=== PATIENT | female | born 1995 | race Caucasian/White ===

== ENCOUNTER → 2018-03-31 12:48 | Outpatient (CLI) | payer OTHER, MEDICAID, SELFPAY ==
[2018-03-31 13:40] LABS: Add Manual Diff / Slide Review NO; Basophils Percent Auto 0.2 % (0-2); Eosinophils Percent Auto 1.3 % (2-4); Hematocrit 41.7 % (36-46); Hemoglobin 14.1 g/dL (12.0-16.0); Lymphocytes Percent Auto 30.5 % (25-40); Mean Corpuscular HGB Conc 33.8 % (30-36); Mean Corpuscular Hemoglobin 28.5 PG (26-34); Mean Corpuscular Volume 84.5 fL (80-100); Monocytes Percent Auto 6.1 % (3-14); Neutrophils Absolute Auto 4200 /uL (1500-7000); Neutrophils Percent Auto 61.9 % (50-75); Platelet Count 258 X10^3/uL (150-400); Red Blood Cell Count 4.94 X10^6/uL (4.0-5.2); White Blood Cell Count 6.8 X10^3/uL (4.5-11.0)
[2018-03-31 14:08] LABS: Alanine Aminotransferase 26 IU/L (9-52); Albumin 4.2 g/dL (3.5-5.0); Albumin Globulin Ratio 1.4 (1.0-2.8); Alkaline Phosphatase 89 U/L (38-126); Aspartate Aminotransferase 25 IU/L (14-36); Bilirubin Total 0.4 mg/dL (0.2-1.3); Blood Urea Nitrogen 12 mg/dL (7-17); Calcium 9.1 mg/dL (8.4-10.2); Carbon Dioxide 25 mmol/L (22-32); Chloride 104 mmol/L (98-107); Cholesterol 194 mg/dL (140-199); Estimated Glomerular Filt Rate > 60.0 mL/min (>60); Globulin 3.1 g/dL (1.7-4.1); Glucose 97 mg/dL (70-100); HDL Cholesterol 49 mg/dL (40-60); HEMOLYSIS < 15 (0-50); LDL Cholesterol Calculated 127 mg/dL (<100); Potassium 4.1 mmol/L (3.4-5.1); Sodium 138 mmol/L (137-145); Total Protein 7.3 g/dL (6.3-8.2); Triglycerides 89 mg/dL (35-150)
[2018-03-31 14:32] LABS: Free T3, Triiodothyronine Free 4.14 pg/mL (2.77-5.27); Free T4, Direct Thyroxine 0.86 ng/dL (0.78-2.19)
[2018-03-31 14:46] LABS: Thyroid Stimulating Hormone 1.32 uIU/mL (0.47-4.68)
== END ==
PROVIDERS: PCP Family Medicine; Visit Provider Family Medicine
DX: N94.6 Dysmenorrhea, unspecified (principal); Z51.81 Encounter for therapeutic drug level monitoring; Z86.39 Personal history of other endocrine, nutritional and metabolic disease
CPT/HCPCS: 36415; 80053; 80061; 84439; 84443; 84481; 85025

== ENCOUNTER → 2019-01-04 12:29 | Outpatient (CLI) | payer OTHER, MEDICAID, SELFPAY ==
[2019-01-04 13:48] LABS: Appearance Urine UA CLOUDY; Bilirubin Urine UA NEGATIVE (NEGATIVE); Color Urine UA YELLOW; Glucose Urine UA NEGATIVE (Negative); Ketones Urine UA NEGATIVE (NEGATIVE); Leukocyte Esterase Urine UA 1+ (NEGATIVE); Nitrite Urine UA POSITIVE (Negative); Occult Blood Urine UA TRACE-LYSED (Negative); Protein Urine UA TRACE (Negative); Specific Gravity Urine UA 1.015 (1.000-1.035); Urobilinogen Urine UA 0.2 E.U./dL (0.2)
[2019-01-04 14:04] LABS: Bacteria Urine Many (>30); RBC Urine 0-1/HPF (0-5/HPF); Squamous Epithelial Cell Urine 10-30 /HPF (0-5/HPF); WBC Urine 10-30/HPF (0-5/HPF); pH Urine UA 6.5 (4.5-8.0)
== END ==
PROVIDERS: PCP Family Medicine; Visit Provider Family Medicine
DX: R39.89 Other symptoms and signs involving the genitourinary system (principal)
CPT/HCPCS: 81001

== ENCOUNTER 2019-01-16 18:21 | Emergency (ER) | payer OTHER, MEDICAID, SELFPAY ==
[2019-01-16 18:33] VITALS: BP 150/101; PULSE 100; RESP 16; TEMP 37.2; O2SAT 97; BMI 44.6
--- NOTE | 2019-01-16 18:41 | DI.RAD.S_ITS ---
PROCEDURE: XR FOOT RT MIN 3V INDICATIONS: pain s/p fracture TECHNIQUE: 3 views of the foot were acquired. COMPARISON: None. FINDINGS: Bones: No displaced fractures or dislocations. No suspicious bony lesions. Soft tissues: No tibiotalar joint effusion. Achilles tendon appears intact. IMPRESSION: 1. No displaced fracture or dislocation. Dictated by: Karson Gold M.D. on 01/16/2019 at 19:53 Approved by: Karson Gold M.D. on 01/16/2019 at 19:54
[2019-01-16] MEDS: KETOROLAC 60 MG/2 ML VIAL IM (18:51)
--- NOTE | 2019-01-16 20:14 | ED.LOWEXIN ---
HPI - Extremity Injury (Lower) <JUANITA Ayala-BC - Last Filed: 01/16/19 20:33> General Chief Complaint: Extremity Injury, Lower Stated Complaint: Right foot pain can't put pressure on it Time Seen by Provider: 01/16/19 18:32 Source: patient Mode of arrival: Ambulatory Limitations: no limitations History of Present Illness HPI Narrative: The patient is a 23-year-old female nonsmoker with history of obesity who presents with a chief complaint of right foot pain x3 days. She states that the outside of her right foot hurts and radiates over. She is concerned as she has had a fracture in this foot 6 years ago. She denies any precipitating injuries. She has not taken any Tylenol or Motrin for the foot, as she does not like taking medications. Related Data Previous Rx's Medication Instructions Recorded albuterol sulfate [Ventolin HFA] 2 puff INH Q4HP PRN #1 ea 05/27/17 sulfamethoxazole 800 1 tab PO BID #14 tab 01/04/19 mg-trimethoprim 160 mg tablet omeprazole magnesium 20 mg 20 mg PO DAILY #30 capl 01/11/19 tablet,delayed release sertraline 100 mg tablet 100 mg PO DAILY #30 tab 01/11/19 Allergies Allergy/AdvReac Type Severity Reaction Status Date / Time cephalexin [From KEFLEX] AdvReac Mild nausea Verified 04/16/18 15:36 Review of Systems <ДМИТРИЙ Ayala - Last Filed: 01/16/19 20:33> Review of Systems Narrative: GENERAL: Denies chills, fatigue, malaise, fever, sweats. HEENT: Denies sinus pain, ear pain, sore throat, difficulty swallowing, dizziness. RESPIRATORY: Denies dyspnea, cough, wheezing, hemoptysis, sputum. CARDIOVASCULAR: Denies chest pain, palpitations, orthopnea, edema, GASTROINTESTINAL: Denies nausea, vomiting, abdominal pain, diarrhea, constipation, melena. : Denies dysuria, frequency, incontinence, hematuria, urinary retention. MUSCULOSKELETAL: See HPI SKIN: Denies rash, skin lesions, or other NEUROLOGIC: Denies weakness, headache, numbness, change in speech, confusion, seizures, incoordination. PSYCHIATRIC: No concerning psychosocial issues. 12 point review of systems is negative except for those stated above Patient History <REGINALD Ayala - Last Filed: 01/16/19 20:33> Medical History Anxiety (Chronic) Depression (Chronic) IBS (irritable bowel syndrome) (Chronic) Surgical History Status post delivery (11/18/16) Social History Smoking Status: Never smoker Social History Smoking Status: Never smoker Exam <REGINALD Ayala - Last Filed: 01/16/19 20:33> Narrative Exam Narrative: GENERAL: This is a well-nourished, well-developed patient, in no acute distress HEAD: Atraumatic. Normocephalic. No temporal or scalp tenderness. EYES: Pupils equal round and reactive. Extraocular motions intact. No scleral icterus. No injection or drainage. ENT: Nose without bleeding, purulent drainage or septal hematoma. Throat without erythema, tonsillar hypertrophy or exudate. Uvula midline. Airway patent. NECK: Trachea midline. No JVD or lymphadenopathy. Supple, nontender, no meningeal signs. CARDIOVASCULAR: Regular rate and rhythm RESPIRATORY: No cough. No increased respiratory effort. No accessory muscle use. GASTROINTESTINAL: Abdomen soft, non-tender, nondistended. No hepato-splenomegaly, or palpable masses. No guarding. EXTREMITIES: Positive pedal pulses right foot. Capillary refill less than 2 seconds all toes right foot. Generalized pain to palpation on right foot distal to 5th digit and radiating around navicular. Ambulating without distress. NEURO: AOx3. SKIN: No rash or erythema on visible skin. No erythema or ecchymosis noted on foot. Initial Vital Signs Initial Vital Signs: Vital Signs Temperature 98.9 F 01/16/19 18:33 Pulse Rate 100 H 01/16/19 18:33 Respiratory Rate 16 01/16/19 18:33 Blood Pressure 150/101 H 01/16/19 18:33 Pulse Oximetry 97 01/16/19 18:33 <Lauren Hooper DO - Last Filed: 01/17/19 00:21> Initial Vital Signs Initial Vital Signs: Vital Signs Temperature 98.9 F 01/16/19 18:33 Pulse Rate 100 H 01/16/19 18:33 Respiratory Rate 16 01/16/19 18:33 Blood Pressure 150/101 H 01/16/19 18:33 Pulse Oximetry 97 01/16/19 18:33 Course <REGINALD Ayala - Last Filed: 01/16/19 20:33> Orders Ordered: ED Orders 01/16/19 18:41 XR foot RT min 3V Stat Discontinued Medications Ketorolac Tromethamine (Toradol) 60 mg IM NOW ONE Stop: 01/16/19 18:42 Last Admin: 01/16/19 18:51 Dose: 60 mg Documented by: JOSE Vital Signs Vital signs: Vital Signs - 8 hr 01/16/19 18:33 Temperature 98.9 F Pulse Rate 100 H Respiratory Rate 16 Blood Pressure 150/101 H Pulse Oximetry 97 <Lauren Hooper DO - Last Filed: 01/17/19 00:21> Orders Ordered: ED Orders 01/16/19 18:41 XR foot RT min 3V Stat Discontinued Medications Ketorolac Tromethamine (Toradol) 60 mg IM NOW ONE Stop: 01/16/19 18:42 Last Admin: 01/16/19 18:51 Dose: 60 mg Documented by: JOSE Vital Signs Vital signs: Vital Signs - 8 hr 01/16/19 18:33 Temperature 98.9 F Pulse Rate 100 H Respiratory Rate 16 Blood Pressure 150/101 H Pulse Oximetry 97 MDM - Extremity Injury (Lower) <REGINALD Ayala - Last Filed: 01/16/19 20:33> Imaging Data Foot x-ray: Radiologist's impression: ManavSophie Decker 23 F [address] [address] XRay Report Signed Patient: Sophie Em [facility]#: [id number] : 1995Acct:[id number] Age/Sex: 23 / FDate of Service: 01/16/19 Loc: ED Accession Number: [id number] Procedure: XR foot RT min 3V Ordering Provider: Lauren Hurtado PROCEDURE: XR FOOT RT MIN 3V INDICATIONS: pain s/p fracture TECHNIQUE: 3 views of the foot were acquired. COMPARISON: None. FINDINGS: Bones: No displaced fractures or dislocations. No suspicious bony lesions. Soft tissues: No tibiotalar joint effusion. Achilles tendon appears intact. IMPRESSION: 1. No displaced fracture or dislocation. Dictated by: Karson Gold M.D. on 01/16/2019 at 19:53 Approved by: Karson Gold M.D. on 01/16/2019 at 19:54 [facility] Narrative Medical decision making narrative: The patient is a 23-year-old female who presents with a chief complaint of foot pain for 3 days. She has a history of fracture in that foot. She does not have an acute exam is able to ambulate with weight bearing. X-ray was taken to rule out any recurring or new fracture. This came back negative. The patient was given Toradol in the emergency department. I offered a postoperative shoe or wrap, which the patient declined. I encouraged a few days of rest ice compression elevation as well as [id number] pain medications as needed and able. Patient states understanding and has no questions regarding plan of care. She states understanding of return precautions of acute concerns and recommendations a follow-up with her PCP. Discussed the possibility of an occult fracture and recommended follow-up in 10 days if worsening or no improvement. Patient was stable throughout her stay in the emergency department states understanding of return precautions as well as follow-up care. Discharge Plan Departure Patient Disposition: Home Clinical Impression: Acute foot pain Qualifiers: Laterality: right Qualified Code(s): M79.671 - Pain in right foot Discharge Date/Time: 01/16/19 20:24 Instructions: How To Perform RICE (Rest, Ice, Compress, Elevate), DI for Foot Pain Activity Restrictions/Additional Instructions: Your x-ray came back with no acute fractures today. Please try [id number] medications as needed and able Please use rest ice compression elevation Please follow up with primary care provider especially if worsening or no improvement. Please come back to the emergency department for any acute concerns Prescriptions: No Action albuterol sulfate [Ventolin HFA] 90 MCG/PUFF HFA aerosol inhaler 2 puff INH Q4HP PRNQty: 1 RF: 0 sulfamethoxazole-trimethoprim [Bactrim DS] 800-160 mg tablet 1 tab PO BID Qty: 14 RF: 0 Prilosec OTC 20 mg tablet,delayed release (DR/EC) 20 mg PO DAILY Qty: 30 RF: 2 sertraline 100 mg tablet 100 mg PO DAILY Qty: 30 RF: 2 Referrals: Soraya Navarro DO [Primary Care Provider] -
== END 2019-01-16 20:24 | disposition home or self-care (01) ==
PROVIDERS: Emergency Provider Nurse Practitioner Family; PCP Family Medicine
DX: M79.671 Pain in right foot (principal)
CPT/HCPCS: 73630; 96372; 99282; 99283; J1885

== ENCOUNTER 2019-09-29 23:24 | Emergency (ER) | payer OTHER, MEDICAID, SELFPAY ==
[2019-09-29 23:31] VITALS: PULSE 108; O2SAT 99
[2019-09-29 23:33] VITALS: BP 179/117; PULSE 104; RESP 15; TEMP 36.9; O2SAT 97; BMI 51.5
--- NOTE | 2019-09-29 23:35 | ED.HA ---
HPI - Headache General Chief Complaint: Headache Stated Complaint: headache/feels like fainting Time Seen by Provider: 09/29/19 23:32 Source: patient Mode of arrival: Ambulatory Limitations: no limitations History of Present Illness HPI Narrative: A 24-year-old female. Does have a history of headaches. She states the started over the past several weeks/months. States that at home she normally takes some caffeine and a Tylenol. She states that she tried that this evening without any improvement in her symptoms. She states that her headache was a fairly sudden onset. She was sitting on her couch. Started in the back of her head and radiates to the front. No vision changes. No numbness and tingling in arms or legs or hands and feet. No fevers. Related Data Previous Rx's Medication Instructions Recorded albuterol sulfate [Ventolin HFA] 2 puff INH Q4HP PRN #1 ea 05/27/17 doxycycline hyclate 100 mg capsule 100 mg PO BID #10 cap 07/08/19 omeprazole magnesium 20 mg 20 mg PO DAILY #30 capl 09/06/19 tablet,delayed release sertraline 100 mg tablet 100 mg PO DAILY #90 tab 09/27/19 Allergies Allergy/AdvReac Type Severity Reaction Status Date / Time cephalexin [From KEFLEX] AdvReac Mild nausea Verified 06/01/19 13:45 Review of Systems Constitutional Constitutional: Denies fever(s) and Reports headache(s) Eyes Eyes: Denies change in vision ENT Ears, Nose, Mouth, and Throat: Denies dizziness, Reports headache(s) and Denies sore throat Cardiovascular Cardiovascular: Denies chest pain, Denies rapid heart rate and Denies dyspnea Respiratory Respiratory: Denies cough and Denies dyspnea Gastrointestinal Gastrointestinal: Denies abdominal pain, Denies nausea and Denies vomiting Genitourinary Genitourinary: Denies dysuria Genitourinary: Denies dysuria Integumentary/Breasts Skin/Breast: Denies rash Neurologic Neurologic: Denies abnormal speech, Denies behavioral changes, Denies confusion, Denies dizziness, Reports headache(s) and Denies memory loss Psychiatric Psychiatric: Denies behavioral changes, Denies confusion and Denies memory loss Hematologic/Lymphatic Hematologic/Lymphatic: Denies easy bleeding and Denies easy bruising Patient History Medical History Anxiety (Chronic) Depression (Chronic 2014) IBS (irritable bowel syndrome) (Chronic) Surgical History Status post delivery (11/18/16) Social History Smoking Status: Never smoker Smoking Status: Never smoker Exam Initial Vital Signs Initial Vital Signs: Vital Signs Pulse Rate 108 H 09/29/19 23:31 Pulse Oximetry 99 09/29/19 23:31 Const General: cooperative and comfortable Limitations: mental status not altered HENMT Head: normal to inspection and normocephalic Nose: external nose normal Face and sinus: normal facial exam Mouth: oral mucosae normal Eyes Pupils: PERRL EOM: EOM intact bilaterally Resp Effort & Inspection: normal respiratory effort Auscultation: clear to auscultation bilaterally Cardio Rate: tachycardic Rhythm: regular rhythm Skin Lesions: no lesions Rashes: no rashes Neuro General: patient alert, patient awake and patient oriented x3 Cranial Nerves: CN's II-XI intact bilaterally Cognition: normal cognition Speech: speech normal Gait: normal gait Motor: muscle tone normal throughout Sensory Exam: no sensory deficits noted Extrem General: normal to inspection and capillary refill normal Psych Appearance: grossly normal and well kempt Scores GCS Duong coma scale eye opening: Spontaneous Duong coma scale verbal response: Orientated Duong coma scale motor response: Obey commands [place] coma scale total score: 15 Course Orders Ordered: ED Orders 09/29/19 23:42 CT head/brain wo con Stat 09/29/19 23:45 Basic Metabolic Panel Stat Complete Blood Count AUTO DIFF Stat Test Serum,Qual Stat Discontinued Medications Diphenhydramine HCl (Benadryl) 25 mg IV NOW ONE Stop: 09/29/19 23:41 Last Admin: 09/29/19 23:58 Dose: 25 mg Documented by: MMCFARL Sodium Chloride (Normal Saline 0.9%) 1,000 mls @ 1,000 mls/hr IV BOLUS ONE Stop: 09/30/19 00:39 Last Admin: 09/29/19 23:59 Dose: 1,000 mls/hr Documented by: MMCFARL Metoclopramide HCl (Reglan) 10 mg IV NOW ONE Stop: 09/29/19 23:41 Last Admin: 09/29/19 23:59 Dose: 10 mg Documented by: MMCFARL Vital Signs Vital signs: Vital Signs - 8 hr 09/29/19 23:31 09/29/19 23:33 09/29/19 23:49 Temperature 98.5 F Pulse Rate 108 H 104 H 107 H Respiratory Rate 15 Blood Pressure 179/117 H 158/87 H Pulse Oximetry 99 97 99 09/30/19 00:03 09/30/19 00:40 Temperature Pulse Rate 99 H 100 H Respiratory Rate Blood Pressure 136/86 Pulse Oximetry 100 97 MDM - Headache Lab Data Attestation: I reviewed the patient's lab results. Result diagrams: 09/29/19 23:45 09/29/19 23:45 Labs: Lab Results 09/29/19 09/29/19 09/29/19 Range/Units 23:45 23:45 23:45 WBC 10.4 (4.5-11.0) X10^3/uL RBC 4.77 (4.0-5.2) X10^6/uL Hgb 13.4 (12.0-16.0) g/dL Hct 39.5 (36-46) % MCV 82.7 (80-100) fL MCH 28.1 (26-34) PG MCHC 34.0 (30-36) % RDW 13.2 (11.6-14.8) % Plt Count 307 (150-400) X10^3/uL Neut % (Auto) 63.5 (50-75) % Lymph % (Auto) 29.4 (25-40) % Sharkey % (Auto) 5.9 (3-14) % Eos % (Auto) 0.7 L (2-4) % Baso % (Auto) 0.5 (0-2) % Neut # (Auto) 6600 (1271-8307) /uL Lymph # (Auto) 3100 (9792-6758) /uL Sharkey # (Auto) 600 (0-900) /uL Eos # (Auto) 100 (0-450) /uL Baso # (Auto) 100 (0-100) /uL Sodium 137 (137-145) mmol/L Potassium 3.7 (3.4-5.1) mmol/L Chloride 101 (98-107) mmol/L Carbon Dioxide 27 (22-32) mmol/L BUN 10 (7-17) mg/dL Creatinine 0.75 (0.52-1.04) mg/dL Estimated GFR > 60.0 (>60) mL/min BUN/Creatinine Ratio 13.3 (6-22) Glucose 113 H (70-100) mg/dL Calcium 9.8 (8.4-10.2) mg/dL Serum , Qual Negative (Negative) MDM Narrative Medical decision making narrative: Patient with a fairly sudden onset of headache. Afebrile. Has a normal neurologic exam. Head CT negative within 6 hours of onset of symptoms. Patient reports headache almost completely resolved after medications. I feel given her presentation and timing of head CT and other lab work that we could hold on a lumbar puncture. Low suspicion for meningitis. Low suspicion for subarachnoid hemorrhage. Patient was given return precautions and follow-up instructions. She expressed understanding and agreement with plan. Discharge Plan Departure Patient Disposition: Home Clinical Impression: Headache Qualifiers: Headache type: unspecified Headache chronicity pattern: unspecified pattern Intractability: not intractable Qualified Code(s): R51 - Headache Discharge Date/Time: 09/30/19 01:00 Instructions: DI for Headache Activity Restrictions/Additional Instructions: Continue all of your medications as directed. Contact your primary provider for follow-up. Return to the emergency department for any new or worsening symptoms Prescriptions: No Action albuterol sulfate [Ventolin HFA] 90 MCG/PUFF HFA aerosol inhaler 2 puff INH Q4HP PRNQty: 1 RF: 0 doxycycline hyclate 100 mg capsule 100 mg PO BID Qty: 10 RF: 0 Prilosec OTC 20 mg tablet,delayed release (DR/EC) 20 mg PO DAILY Qty: 30 RF: 2 sertraline 100 mg tablet 100 mg PO DAILY Qty: 90 RF: 0 Referrals: Carl Alfaro, [Primary Care Provider] -
--- NOTE | 2019-09-29 23:42 | DI.CT.S_ITS ---
PROCEDURE: CT HEAD/BRAIN WO CON INDICATIONS: Left sided headache TECHNIQUE: Noncontrast 4.5 mm thick angled axial sections acquired from the foramen magnum to the vertex, with coronal and sagittal reformats. For radiation dose reduction, the following was used: automated exposure control, adjustment of mA and/or kV according to patient size. COMPARISON: None. FINDINGS: Image quality: Excellent. CSF spaces: Basal cisterns are patent. No extra-axial fluid collections. Ventricles are normal in size and shape. Brain: No midline shift. No intracranial masses or hemorrhage. Easley-white matter interface is normal. Skull and face: Calvarium and visualized facial bones are intact, without suspicious lesions. Sinuses: Visualized sinuses and mastoids are clear. IMPRESSION: No acute intracranial abnormality demonstrated. This report is concordant with the overnight preliminary interpretation. Dictated by: Rogelio Valle M.D. on 09/30/2019 at 7:55 Approved by: Rogelio Valle M.D. on 09/30/2019 at 7:56
[2019-09-29 23:49] VITALS: BP 158/87; PULSE 107; O2SAT 99
[2019-09-29] MEDS: diphenhydrAMINE 50 MG/ML VIAL 25 MG IV (23:58)
[2019-09-29] MEDS: SODIUM CHLORIDE 0.9% 1,000 ML 1000 ML IV (23:59)
[2019-09-29] MEDS: METOCLOPRAMIDE 10 MG/2 ML INJ IV (23:59)
[2019-09-30 00:03] VITALS: PULSE 99; O2SAT 100
[2019-09-30 00:10] LABS: BUN Creatinine Ratio 13.3 (6-22); Blood Urea Nitrogen 10 mg/dL (7-17); Calcium 9.8 mg/dL (8.4-10.2); Carbon Dioxide 27 mmol/L (22-32); Chloride 101 mmol/L (98-107); Estimated Glomerular Filt Rate > 60.0 mL/min (>60); Glucose 113 mg/dL (70-100); HEMOLYSIS < 15 (0-50); Potassium 3.7 mmol/L (3.4-5.1); Sodium 137 mmol/L (137-145)
[2019-09-30 00:15] LABS: Add Manual Diff / Slide Review NO; Basophils Absolute Auto 100 /uL (0-100); Basophils Percent Auto 0.5 % (0-2); Eosinophils Absolute Auto 100 /uL (0-450); Eosinophils Percent Auto 0.7 % (2-4); Hematocrit 39.5 % (36-46); Hemoglobin 13.4 g/dL (12.0-16.0); Lymphocytes Absolute Auto 3100 /uL (1100-4500); Lymphocytes Percent Auto 29.4 % (25-40); Mean Corpuscular Hemoglobin 28.1 PG (26-34); Mean Corpuscular Volume 82.7 fL (80-100); Monocytes Absolute Auto 600 /uL (0-900); Monocytes Percent Auto 5.9 % (3-14); Neutrophils Absolute Auto 6600 /uL (1500-7000); Neutrophils Percent Auto 63.5 % (50-75); Platelet Count 307 X10^3/uL (150-400); Red Blood Cell Count 4.77 X10^6/uL (4.0-5.2); Red Cell Distribution Width 13.2 % (11.6-14.8); White Blood Cell Count 10.4 X10^3/uL (4.5-11.0)
[2019-09-30 00:17] LABS: Pregnancy Test Serum,Qual Negative (Negative)
[2019-09-30 00:40] VITALS: BP 136/86; PULSE 100; O2SAT 97
== END 2019-09-30 01:00 | disposition home or self-care (01) ==
PROVIDERS: Emergency Provider Emergency Medicine; PCP Family Medicine
DX: R51 Headache (principal)
CPT/HCPCS: 36415; 70450; 80048; 84703; 85025; 96374; 96375; 99284; J1200; J2765

== ENCOUNTER → 2020-09-06 14:06 | Outpatient (CLI) | payer OTHER, MEDICAID, SELFPAY ==
--- NOTE | 2020-09-06 14:07 | DI.RAD.S_ITS ---
PROCEDURE: XR KNEE RT 3V INDICATIONS: right knee pain TECHNIQUE: 3 views of the knee were acquired. COMPARISON: None. FINDINGS: Bones: No fractures or dislocations. No suspicious bony lesions. Soft tissues: Small joint effusion is suspected. No suspicious soft tissue calcifications. IMPRESSION: No acute osseous abnormalities. Small effusion may be present. If clinical symptoms persist or clinical suspicion for internal derangement is high, advanced imaging such as MRI is suggested for further evaluation. Dictated by: Temitope Amaral M.D. on 09/06/2020 at 17:21 Approved by: Temitope Amaral M.D. on 09/06/2020 at 17:22
== END ==
PROVIDERS: PCP Registered Nurse Diabetes Educator; Referring Provider Nurse Practitioner Family; Visit Provider Nurse Practitioner Family
DX: M25.561 Pain in right knee (principal)
CPT/HCPCS: 73562

== ENCOUNTER → 2021-03-19 09:39 | Outpatient (CLI) | payer OTHER, MEDICAID, SELFPAY ==
--- NOTE | 2021-03-19 09:41 | DI.RAD.S_ITS ---
PROCEDURE: XR SACRUM COCCYX MIN 2V INDICATIONS: eval coccyx pain s/p trauma 03/12. Pls r/o fracture. TECHNIQUE: 3 views of the sacrum and coccyx acquired. COMPARISON: None. FINDINGS: Bones: No fractures or dislocations. No suspicious bony lesions. Normal bone mineralization present. Soft tissues: Visualized bowel gas pattern is normal. No suspicious soft tissue densities. IMPRESSION: Unremarkable sacrum and coccygeal radiographs without evidence of fracture. Approved by: Marco A Bowers M.D. on 03/19/2021 at 9:30
== END ==
PROVIDERS: PCP Registered Nurse Diabetes Educator; Referring Provider Registered Nurse Diabetes Educator; Visit Provider Registered Nurse Diabetes Educator
DX: M53.3 Sacrococcygeal disorders, not elsewhere classified (principal)
CPT/HCPCS: 72220

== ENCOUNTER → 2021-05-20 14:46 | Outpatient (CLI) | payer OTHER, MEDICAID, SELFPAY ==
[2021-05-20 15:53] LABS: Influenza A - CEPHEID Flu A NEGATIVE (NEGATIVE); Influenza B - CEPHEID Flu B NEGATIVE (NEGATIVE)
[2021-05-20 16:21] LABS: COVID-19 CEPHEID PCR (VTM/NP) Negative (Negative)
== END ==
PROVIDERS: PCP Registered Nurse Diabetes Educator; Visit Provider Physician Assistant
DX: J02.9 Acute pharyngitis, unspecified (principal); R68.89 Other general symptoms and signs; Z20.822 Contact with and (suspected) exposure to COVID-19
CPT/HCPCS: 0240U; 87070; 87880

== ENCOUNTER → 2021-06-05 15:13 | Outpatient (CLI) | payer OTHER, MEDICAID, SELFPAY ==
[2021-06-05 16:10] LABS: Influenza A - CEPHEID Flu A NEGATIVE (NEGATIVE); Influenza B - CEPHEID Flu B NEGATIVE (NEGATIVE)
[2021-06-05 16:16] LABS: COVID-19 CEPHEID PCR (VTM/NP) Negative (Negative)
== END ==
PROVIDERS: PCP Registered Nurse Diabetes Educator; Visit Provider Registered Nurse Diabetes Educator
DX: R05.9 Cough, unspecified (principal); R53.83 Other fatigue
CPT/HCPCS: 0240U

== ENCOUNTER → 2021-06-13 15:30 | Outpatient (CLI) | payer OTHER, MEDICAID, SELFPAY ==
[2021-06-13 16:41] LABS: Alanine Aminotransferase 24 IU/L (<35); Albumin 4.3 g/dL (3.5-5.0); Albumin Globulin Ratio 1.2 (1.0-2.8); Alkaline Phosphatase 70 U/L (38-126); Aspartate Aminotransferase 24 IU/L (14-36); BUN Creatinine Ratio 18.8 (6-22); Bilirubin Total 0.7 mg/dL (0.2-1.3); Blood Urea Nitrogen 13 mg/dL (7-17); C-Reactive Protein Quant 0.8 mg/dL (<1.0); Calcium 9.3 mg/dL (8.4-10.2); Carbon Dioxide 31 mmol/L (22-32); Chloride 100 mmol/L (98-107); Estimated Glomerular Filt Rate > 60.0 mL/min (>60); Globulin 3.5 g/dL (1.7-4.1); Glucose 94 mg/dL (70-100); HEMOLYSIS < 15 (0-50); Potassium 3.7 mmol/L (3.4-5.1); Sodium 136 mmol/L (137-145); Total Protein 7.8 g/dL (6.3-8.2)
[2021-06-13 17:03] LABS: Add Manual Diff / Slide Review NO; Basophils Absolute Auto 0 /uL (0-100); Basophils Percent Auto 0.4 % (0-2); Eosinophils Absolute Auto 100 /uL (0-450); Eosinophils Percent Auto 1.2 % (2-4); Hematocrit 40.8 % (36-46); Hemoglobin 13.8 g/dL (12.0-16.0); Lymphocytes Absolute Auto 2100 /uL (1100-4500); Lymphocytes Percent Auto 25.6 % (25-40); Mean Corpuscular HGB Conc 33.9 % (30-36); Mean Corpuscular Hemoglobin 28.8 PG (26-34); Monocytes Absolute Auto 600 /uL (0-900); Monocytes Percent Auto 6.7 % (3-14); Neutrophils Absolute Auto 5400 /uL (1500-7000); Neutrophils Percent Auto 66.1 % (50-75); Platelet Count 333 X10^3/uL (150-400); Red Cell Distribution Width 13.6 % (11.6-14.8); White Blood Cell Count 8.2 X10^3/uL (4.5-11.0)
[2021-06-13 17:09] LABS: TSH w/ Reflex to FT4 0.97 uIU/mL (0.47-4.68)
[2021-06-13 17:17] LABS: Erythrocyte Sedimentation Rate 8 MM/HR (0-20)
== END ==
PROVIDERS: PCP Registered Nurse Diabetes Educator; Referring Provider Registered Nurse Diabetes Educator; Visit Provider Registered Nurse Diabetes Educator
DX: K92.1 Melena (principal); R42 Dizziness and giddiness; Z83.49 Family history of other endocrine, nutritional and metabolic diseases; Z83.79 Family history of other diseases of the digestive system
CPT/HCPCS: 36415; 80053; 84443; 85025; 85651; 86140

== ENCOUNTER → 2021-08-10 16:56 | Outpatient (CLI) | payer OTHER, MEDICAID, SELFPAY | PROVIDERS: PCP Registered Nurse Diabetes Educator; Visit Provider Nurse Practitioner Critical Care Medicine | DX: R30.0 Dysuria (principal) | CPT/HCPCS: 81002; 87077; 87086; 87186 ==

== ENCOUNTER 2021-10-30 16:21 | Observation (INO) | payer OTHER, MEDICAID, SELFPAY ==
[2021-10-30 16:25] VITALS: BP 153/94; PULSE 88; RESP 24; TEMP 36.8; O2SAT 98; BMI 51.5
--- NOTE | 2021-10-30 16:48 | ED.ABDPAIN ---
HPI - Abdominal Pain <Cleopatra Wilson, [facility] - Last Filed: 10/31/21 13:32> General Chief Complaint: Abdominal Pain Stated Complaint: Worsening stomach pains 3 days Time Seen by Provider: 10/30/21 16:35 Source: patient Mode of arrival: Ambulatory History of Present Illness HPI narrative: This is a 26-year-old female presents to the emergency department complaining of three days of right-sided abdominal pain over the last three days associated with nausea, and diffuse abdominal pain. She states that she has a history of IBS but states this pain is very different. She states that it radiates to her low back, it is a generalized abdominal pain but worse on the right, tender to palpation over the right upper quadrant, states that she is been in bed for the last three days due to her pain. She is a female with history of a but denies any other abdominal surgeries. She states that her pain is along whole right side of her abdomen. She denies any dysuria or flank pain, denies any changes to her stool. She states that she has had blood in her stool in the past but none recently, denies any abnormal vaginal discharge, history last menstrual period was one month ago, denies any chance of . She denies any history of similar pain, states it is generalized in her abdomen but primarily on the right side and she is tender to palpation whole right side of her abdomen. She denies any chills, denies any fever, denies any recent illness. Related Data Previous Rx's Medication Instructions Recorded fluoxetine 60 mg tablet 60 mg PO QAM #90 tabs 02/13/21 rizatriptan 5 mg tablet See Rx Instructions PO .COMPLEX 02/13/21 #30 tabs albuterol sulfate 2.5 mg/3 mL 2.5 mg (3 mL) inhalation Q4-6H PRN 06/05/21 (0.083 %) solution for nebulization shortness of breath or wheezing #90 mL albuterol sulfate 90 mcg/actuation 2 puff inhalation Q4HP PRN 06/05/21 aerosol inhaler (Ventolin HFA) shortness of breath or wheezing #1 ea nebulizers #1 ea 06/05/21 Allergies Allergy/AdvReac Type Severity Reaction Status Date / Time cephalexin [From KEFLEX] AdvReac Mild nausea Verified 10/02/21 07:42 Review of Systems <TANIA Weinstein - Last Filed: 10/31/21 13:32> Review of Systems Narrative: General: denies fever, chills, malaise, sweats, fatigue Head/Neck: denies headache, neck pain, dizziness Eyes: denies visual changes, eye pain Cardio: denies chest pain, palpitations, edema Respiratory: denies dyspnea, cough, orthopnea GI: denies abdominal pain, nausea, vomiting, or diarrhea : denies dysuria, hematuria, urinary retention, frequency or incontinence MSK: denies joint pain, muscle weakness Skin: denies rash, itching, skin lesions or other Neuro: denies numbness, tingling Patient History <TANIA Weinstein - Last Filed: 10/31/21 13:32> Medical History Anxiety Blood pressure elevated without history of HTN Common migraine Depression (2013) Gastroesophageal reflux disease Headache, chronic daily IBS (irritable bowel syndrome) Muscle tightness Right anterior knee pain Screening for STD (sexually transmitted disease) Surgical History Status post delivery (11/18/16) Social History household members: children Smoking Status: Never smoker alcohol intake: current Smoking Status: Never smoker alcohol intake frequency: holidays/special occasions only Substance Use Type: marijuana Exam <TANIA Weinstein - Last Filed: 10/31/21 13:32> Narrative Exam Narrative: Independently reviewed vitals signs and nursing notes. General: cooperative, comfortable, in no acute distress, well groomed Head: atraumatic, symmetrical facial expressions Neck: supple Eyes: equal round and reactive, EOMI, conjunctiva normal Nose: nares patent, no rhinorrhea Mouth/Throat: moist mucus membranes Cardiovascular: regular rate and rhythm, no peripheral edema, warm extremities Respiratory: normal effort, able to speak in complete sentences, no audible wheezing, stridor, or rales. No retractions or tachypnea. GI: abdomen soft, tender to palpation over the right side of her abdomen, significant tenderness over her gallbladder, also tender over McBurney's point, no tenderness over her left upper lower quadrant, no significant rebound tenderness, no CVA tenderness bilaterally, abdomen is nondistended, soft, without masses. Patient states that her pain is much better than it was when she got here MSK: moves all extremities, neurovascularly intact, no weakness, normal tone Skin: brisk capillary refill, no rash, no erythema Neuro: normal speech and cognition, A&O x3 Psych: mental status is grossly normal, congruent mood, normal affect, pleasant and cooperative Initial Vital Signs Initial Vital Signs: Vital Signs Temperature 98.3 F 10/30/21 16:25 Pulse Rate 88 10/30/21 16:25 Respiratory Rate 24 10/30/21 16:25 Blood Pressure 153/94 H 10/30/21 16:25 Pulse Oximetry 98 10/30/21 16:25 Oxygen Delivery Method 10/30/21 16:25 <Elio Worley DO - Last Filed: 10/31/21 06:04> Initial Vital Signs Initial Vital Signs: Vital Signs Temperature 98.3 F 10/30/21 16:25 Pulse Rate 88 10/30/21 16:25 Respiratory Rate 24 10/30/21 16:25 Blood Pressure 153/94 H 10/30/21 16:25 Pulse Oximetry 98 10/30/21 16:25 Oxygen Delivery Method 10/30/21 16:25 Course <TANIA Weinstein - Last Filed: 10/31/21 13:32> Orders Ordered: Hydromorphone HCl (Hydromorphone 0.5 Mg Inj) 0.5 mg IV Q1H PRN PRN Reason: Pain, Moderate (4-6) Last Admin: 10/31/21 09:26 Dose: 0.5 mg Documented By: Admin: 10/31/21 04:32 Dose: 0.5 mg Documented By: Admin: 10/31/21 02:05 Dose: 0.5 mg Documented By: RENATO Sodium Chloride (Normal Saline 0.9%) 1,000 mls @ 100 mls/hr IV CONT JOHN Last Admin: 10/31/21 10:05 Dose: 100 mls/hr Documented By: Infusion: 10/31/21 09:45 Dose: 100 mls/hr Documented By: Admin: 10/30/21 23:45 Dose: 100 mls/hr Documented By: Piperacillin Sod/Tazobactam (Sod 3.375 gm/ Sodium Chloride) 100 mls @ 25 mls/hr IV Q8H [facility] Last Admin: 10/31/21 04:34 Dose: 25 mls/hr Documented By: Ondansetron HCl (Ondansetron 4 Mg/2 Ml Inj) 4 mg IV Q6HR PRN PRN Reason: Nausea And Vomiting Last Admin: 10/31/21 01:53 Dose: 4 mg Documented By: RENATO Discontinued Medications Hydromorphone HCl (Hydromorphone 0.5 Mg Inj) 0.5 mg IV NOW ONE Stop: 10/30/21 17:12 Last Admin: 10/30/21 17:57 Dose: Not Given Documented By: CECY Piperacillin Sod/Tazobactam (Sod 4.5 gm/ Sodium Chloride) 100 mls @ 200 mls/hr IV NOW ONE Stop: 10/30/21 19:23 Last Infusion: 10/30/21 20:07 Dose: 0 mls/hr Documented By: Admin: 10/30/21 19:35 Dose: 200 mls/hr Documented By: CECY Lactated Ringer's (Lactated Ringers) 1,000 mls @ 100 mls/hr IV CONT [facility] Last Infusion: 10/30/21 23:47 Dose: 0 mls/hr Documented By: Admin: 10/30/21 20:10 Dose: 100 mls/hr Documented By: TAMMI Piperacillin Sod/Tazobactam (Sod 3.375 gm/ Sodium Chloride) 100 mls @ 25 mls/hr IV Q8H [facility] Last Admin: 10/31/21 02:08 Dose: Not Given Documented By: RENATO Piperacillin Sod/Tazobactam (Sod 3.375 gm/ Sodium Chloride) 100 mls @ 25 mls/hr IV Q8H [facility] Ketorolac Tromethamine (Ketorolac 30 Mg/Ml Vial) 15 mg IV NOW ONE Stop: 10/30/21 17:12 Last Admin: 10/30/21 17:57 Dose: 15 mg Documented By: CECY Nitrofurantoin Macrocrystals (Nitrofurantoin Er 100 Mg Capsule) 100 mg PO NOW ONE Stop: 10/30/21 18:06 Last Admin: 10/30/21 18:15 Dose: 100 mg Documented By: CECY Ondansetron HCl (Ondansetron 4 Mg/2 Ml Inj) 4 mg IV NOW ONE Stop: 10/30/21 17:12 Last Admin: 10/30/21 17:57 Dose: 4 mg Documented By: CECY Sodium Chloride (Sodium Chloride 0.9% 100 Ml) 100 ml IV NOW [facility] Stop: 10/30/21 23:01 Consultations Consultation #1: 1900-patient endorses some mild right-sided tenderness, critical result called from radiology stating that patient has appendicitis and it is retrocecal. Awaiting call back from Dr. Mills. Vital Signs Vital signs: Vital Signs - 8 hr 10/30/21 16:25 Temperature 98.3 F Pulse Rate 88 Respiratory Rate 24 Blood Pressure 153/94 H Pulse Oximetry 98 Oxygen Delivery Method Room Air <Elio Worley DO - Last Filed: 10/31/21 06:04> Orders Ordered: Hydromorphone HCl (Hydromorphone 0.5 Mg Inj) 0.5 mg IV Q1H PRN PRN Reason: Pain, Moderate (4-6) Last Admin: 10/31/21 09:26 Dose: 0.5 mg Documented By: Admin: 10/31/21 04:32 Dose: 0.5 mg Documented By: Admin: 10/31/21 02:05 Dose: 0.5 mg Documented By: RENATO Sodium Chloride (Normal Saline 0.9%) 1,000 mls @ 100 mls/hr IV CONT [facility] Last Admin: 10/31/21 10:05 Dose: 100 mls/hr Documented By: Infusion: 10/31/21 09:45 Dose: 100 mls/hr Documented By: Admin: 10/30/21 23:45 Dose: 100 mls/hr Documented By: Piperacillin Sod/Tazobactam (Sod 3.375 gm/ Sodium Chloride) 100 mls @ 25 mls/hr IV Q8H JOHN Last Admin: 10/31/21 04:34 Dose: 25 mls/hr Documented By: Ondansetron HCl (Ondansetron 4 Mg/2 Ml Inj) 4 mg IV Q6HR PRN PRN Reason: Nausea And Vomiting Last Admin: 10/31/21 01:53 Dose: 4 mg Documented By: RENATO Discontinued Medications Hydromorphone HCl (Hydromorphone 0.5 Mg Inj) 0.5 mg IV NOW ONE Stop: 10/30/21 17:12 Last Admin: 10/30/21 17:57 Dose: Not Given Documented By: CECY Piperacillin Sod/Tazobactam (Sod 4.5 gm/ Sodium Chloride) 100 mls @ 200 mls/hr IV NOW ONE Stop: 10/30/21 19:23 Last Infusion: 10/30/21 20:07 Dose: 0 mls/hr Documented By: Admin: 10/30/21 19:35 Dose: 200 mls/hr Documented By: CECY Lactated Ringer's (Lactated Ringers) 1,000 mls @ 100 mls/hr IV CONT [facility] Last Infusion: 10/30/21 23:47 Dose: 0 mls/hr Documented By: Admin: 10/30/21 20:10 Dose: 100 mls/hr Documented By: TAMMI Piperacillin Sod/Tazobactam (Sod 3.375 gm/ Sodium Chloride) 100 mls @ 25 mls/hr IV Q8H [facility] Last Admin: 10/31/21 02:08 Dose: Not Given Documented By: RENATO Piperacillin Sod/Tazobactam (Sod 3.375 gm/ Sodium Chloride) 100 mls @ 25 mls/hr IV Q8H [facility] Ketorolac Tromethamine (Ketorolac 30 Mg/Ml Vial) 15 mg IV NOW ONE Stop: 10/30/21 17:12 Last Admin: 10/30/21 17:57 Dose: 15 mg Documented By: CECY Nitrofurantoin Macrocrystals (Nitrofurantoin Er 100 Mg Capsule) 100 mg PO NOW ONE Stop: 10/30/21 18:06 Last Admin: 10/30/21 18:15 Dose: 100 mg Documented By: CECY Ondansetron HCl (Ondansetron 4 Mg/2 Ml Inj) 4 mg IV NOW ONE Stop: 10/30/21 17:12 Last Admin: 10/30/21 17:57 Dose: 4 mg Documented By: CECY Sodium Chloride (Sodium Chloride 0.9% 100 Ml) 100 ml IV NOW [facility] Stop: 10/30/21 23:01 Vital Signs Vital signs: Vital Signs - 8 hr 10/30/21 16:25 Temperature 98.3 F Pulse Rate 88 Respiratory Rate 24 Blood Pressure 153/94 H Pulse Oximetry 98 Oxygen Delivery Method Room Air MDM - Abdominal Pain <TANIA Weinstein - Last Filed: 10/31/21 13:32> Lab Data Result diagrams: 10/30/21 16:30 10/30/21 16:30 Labs: Lab Results 10/30/21 10/30/21 10/30/21 Range/Units 16:30 16:30 16:45 WBC 10.4 (4.5-11.0) X10^3/uL RBC 4.97 (4.0-5.2) X10^6/uL Hgb 14.3 (12.0-16.0) g/dL Hct 41.3 (36-46) % MCV 82.9 (80-100) fL MCH 28.7 (26-34) PG MCHC 34.6 (30-36) % RDW 12.9 (11.6-14.8) % Plt Count 286 (150-400) X10^3/uL Neut % (Auto) 67.2 (50-75) % Lymph % (Auto) 25.1 (25-40) % [place] % (Auto) 6.0 (3-14) % Eos % (Auto) 1.2 L (2-4) % Baso % (Auto) 0.5 (0-2) % Neut # (Auto) 7000 (5370-0465) /uL Lymph # (Auto) 2600 (6907-0301) /uL [place] # (Auto) 600 (0-900) /uL Eos # (Auto) 100 (0-450) /uL Baso # (Auto) 0 (0-100) /uL Sodium 138 (137-145) mmol/L Potassium 3.9 (3.4-5.1) mmol/L Chloride 101 (98-107) mmol/L Carbon Dioxide 29 (22-32) mmol/L BUN 10 (7-17) mg/dL Creatinine 0.70 (0.52-1.04) mg/dL Estimated GFR > 60 (>60) mL/min BUN/Creatinine Ratio 14.3 (6-22) Glucose 110 H (70-100) mg/dL Calcium 10.0 (8.4-10.2) mg/dL Total Bilirubin 0.3 (0.2-1.3) mg/dL AST 24 (14-36) IU/L ALT 21 (<35) IU/L Alkaline Phosphatase 67 (38-126) U/L Total Protein 7.7 (6.3-8.2) g/dL Albumin 4.3 (3.5-5.0) g/dL Globulin 3.4 (1.7-4.1) g/dL Albumin/Globulin Ratio 1.3 (1.0-2.8) Lipase 62 (23-300) U/L Urine RBC None seen (0-5/HPF) Urine WBC 1-5/hpf (0-5/HPF) Ur Squamous Epith Cells 1-5 /hpf D (0-5/HPF) Urine Bacteria Few (2-10) H (None) Ur Culture Indicated? Culture not indicate SARS-CoV-2 (PCR) (Negative) 10/30/21 Range/Units 19:27 WBC (4.5-11.0) X10^3/uL RBC (4.0-5.2) X10^6/uL Hgb (12.0-16.0) g/dL Hct (36-46) % MCV (80-100) fL MCH (26-34) PG MCHC (30-36) % RDW (11.6-14.8) % Plt Count (150-400) X10^3/uL Neut % (Auto) (50-75) % Lymph % (Auto) (25-40) % Fall[place] % (Auto) (3-14) % Eos % (Auto) (2-4) % Baso % (Auto) (0-2) % Neut # (Auto) (9197-5318) /uL Lymph # (Auto) (7699-2222) /uL Fallon # (Auto) (0-900) /uL Eos # (Auto) (0-450) /uL Baso # (Auto) (0-100) /uL Sodium (137-145) mmol/L Potassium (3.4-5.1) mmol/L Chloride (98-107) mmol/L Carbon Dioxide (22-32) mmol/L BUN (7-17) mg/dL Creatinine (0.52-1.04) mg/dL Estimated GFR (>60) mL/min BUN/Creatinine Ratio (6-22) Glucose (70-100) mg/dL Calcium (8.4-10.2) mg/dL Total Bilirubin (0.2-1.3) mg/dL AST (14-36) IU/L ALT (<35) IU/L Alkaline Phosphatase (38-126) U/L Total Protein (6.3-8.2) g/dL Albumin (3.5-5.0) g/dL Globulin (1.7-4.1) g/dL Albumin/Globulin Ratio (1.0-2.8) Lipase (23-300) U/L Urine RBC (0-5/HPF) Urine WBC (0-5/HPF) Ur Squamous Epith Cells (0-5/HPF) Urine Bacteria (None) Ur Culture Indicated? SARS-CoV-2 (PCR) Negative (Negative) Point of care testing: Point of Care Testing Test Results Negative Urine Dip Bedside Urine Glucose Negative Bedside Urine Bilirubin - Negative Bedside Urine Ketone - Negative Urine Specific [place] 1.025 Bedside Urine Occult Blood - Negative Bedside Urine pH 7.0 Bedside Urine Protein - Negative Bedside Urine Urobilinogen - Negative Bedside Urine Nitrite - Negative Bedside Urine Leukocytes + 70 Esterase Imaging Data US - abdomen: Radiologist's Impression: PROCEDURE: US ABDOMEN LIMITED ? INDICATIONS:? ruq pain ? TECHNIQUE:? Real-time focused scanning was performed of the abdomen, with image documentation.? ? COMPARISON:? None. ? FINDINGS:? The liver demonstrates mildly enlarged size. The liver demonstrates generalized moderately increased echogenicity. This decreases ultrasound sensitivity for detection of hepatic masses.? ? No findings of gallstones or sludge are seen.? The gallbladder wall is not thickened, measuring 3 mm or less.? No specific pericholecystic fluid is seen.? The sonographic Merida sign is negative. ? There is no biliary dilatation, the common bile duct measures 3 mm.? ? The pancreas is not seen. ? This study is limited by body habitus. ?? IMPRESSION:? Limited study demonstrating no definite gallstones or other significant gallbladder abnormality. ? No biliary dilatation. ? Enlarged, fatty liver.? ? ? Dictated by: Alli Romo M.D. on 10/30/2021 at 17:45 ? ? Approved by: Alli Romo M.D. on 10/30/2021 at 17:46 ? MDM Narrative Medical decision making narrative: This is a 26-year-old female presents to the emergency department with right-sided abdominal pain she reports as worsening over the last three days, denies any recent fever or vomiting but endorses nausea. States her last bowel movement was earlier today was not abnormal. Her pain was treated with Toradol, hydromorphone, and Zofran and she reported feeling much better afterwards. Abdominal ultrasound was ordered for right-sided tenderness, especially over her right upper quadrant over her gallbladder but also over her right lower quadrant and over McBurney's point. Abdominal ultrasound does not show any definite gallstones or significant gallbladder abnormality, no biliary dilatation, she does have an enlarged fatty liver and the gallbladder wall was not thickened, measured 3 mm or less without any pericholecystic fluid seen. Sonographic Merida sign is negative. CT abdomen pelvis was ordered as her lab work was overall reassuring without any significant abnormalities. CT abdomen pelvis was significant for acute appendicitis without findings of perforation or abscess. The appendix is abnormal per Radiology report, with while hyperenhancement, moderate surrounding inflammatory changes, the appendix measures up to 14 mm and is seen within a retrocecal location, no associated abscesses seen, mild wall thickening involving the cecum and terminal ileum without additional small bowel abnormality. No abnormal intraperitoneal fluid, no free air. No retroperitoneal or mesenteric adenopathy by size criteria. Incidental note is made of mild splenomegaly. Radiology report did not transfer through this is why these details are listed here. Findings were discussed with the patient, her COVID PCR is negative, she was started on lactated Ringer's at 100 mL an hour, given Zosyn for antibiotic treatment, consultation to Dr. Mills was attempted, pending return phone call. Discussion with Dr. Mills about her symptoms, CT results, patient wishes to stay in the hospital instead of discharging home with antibiotic therapy for pain control and for definitive therapy tomorrow. Dr. Mills states that he will take her to the operating room tomorrow, she is to stay NPO, she is currently treated with Zosyn, and subsequent doses q.6 hours were ordered. She is on LR 100 mL an hour, understands to stay NPO, reports that her pain is well controlled at this time, hydromorphone Q 1 hour as needed is available. <Elio Worley, DO - Last Filed: 10/31/21 06:04> Lab Data Labs: Lab Results 10/30/21 10/30/21 10/30/21 Range/Units 16:30 16:30 16:45 WBC 10.4 (4.5-11.0) X10^3/uL RBC 4.97 (4.0-5.2) X10^6/uL Hgb 14.3 (12.0-16.0) g/dL Hct 41.3 (36-46) % MCV 82.9 (80-100) fL MCH 28.7 (26-34) PG MCHC 34.6 (30-36) % RDW 12.9 (11.6-14.8) % Plt Count 286 (150-400) X10^3/uL Neut % (Auto) 67.2 (50-75) % Lymph % (Auto) 25.1 (25-40) % [place] % (Auto) 6.0 (3-14) % Eos % (Auto) 1.2 L (2-4) % Baso % (Auto) 0.5 (0-2) % Neut # (Auto) 7000 (0509-7158) /uL Lymph # (Auto) 2600 (7445-5145) /uL [place] # (Auto) 600 (0-900) /uL Eos # (Auto) 100 (0-450) /uL Baso # (Auto) 0 (0-100) /uL Sodium 138 (137-145) mmol/L Potassium 3.9 (3.4-5.1) mmol/L Chloride 101 (98-107) mmol/L Carbon Dioxide 29 (22-32) mmol/L BUN 10 (7-17) mg/dL Creatinine 0.70 (0.52-1.04) mg/dL Estimated GFR > 60 (>60) mL/min BUN/Creatinine Ratio 14.3 (6-22) Glucose 110 H (70-100) mg/dL Calcium 10.0 (8.4-10.2) mg/dL Total Bilirubin 0.3 (0.2-1.3) mg/dL AST 24 (14-36) IU/L ALT 21 (<35) IU/L Alkaline Phosphatase 67 (38-126) U/L Total Protein 7.7 (6.3-8.2) g/dL Albumin 4.3 (3.5-5.0) g/dL Globulin 3.4 (1.7-4.1) g/dL Albumin/Globulin Ratio 1.3 (1.0-2.8) Lipase 62 (23-300) U/L Urine RBC None seen (0-5/HPF) Urine WBC 1-5/hpf (0-5/HPF) Ur Squamous Epith Cells 1-5 /hpf D (0-5/HPF) Urine Bacteria Few (2-10) H (None) Ur Culture Indicated? Culture not indicate SARS-CoV-2 (PCR) (Negative) 10/30/21 Range/Units 19:27 WBC (4.5-11.0) X10^3/uL RBC (4.0-5.2) X10^6/uL Hgb (12.0-16.0) g/dL Hct (36-46) % MCV (80-100) fL MCH (26-34) PG MCHC (30-36) % RDW (11.6-14.8) % Plt Count (150-400) X10^3/uL Neut % (Auto) (50-75) % Lymph % (Auto) (25-40) % [place] % (Auto) (3-14) % Eos % (Auto) (2-4) % Baso % (Auto) (0-2) % Neut # (Auto) (9333-7597) /uL Lymph # (Auto) (2888-1617) /uL [place] # (Auto) (0-900) /uL Eos # (Auto) (0-450) /uL Baso # (Auto) (0-100) /uL Sodium (137-145) mmol/L Potassium (3.4-5.1) mmol/L Chloride (98-107) mmol/L Carbon Dioxide (22-32) mmol/L BUN (7-17) mg/dL Creatinine (0.52-1.04) mg/dL Estimated GFR (>60) mL/min BUN/Creatinine Ratio (6-22) Glucose (70-100) mg/dL Calcium (8.4-10.2) mg/dL Total Bilirubin (0.2-1.3) mg/dL AST (14-36) IU/L ALT (<35) IU/L Alkaline Phosphatase (38-126) U/L Total Protein (6.3-8.2) g/dL Albumin (3.5-5.0) g/dL Globulin (1.7-4.1) g/dL Albumin/Globulin Ratio (1.0-2.8) Lipase (23-300) U/L Urine RBC (0-5/HPF) Urine WBC (0-5/HPF) Ur Squamous Epith Cells (0-5/HPF) Urine Bacteria (None) Ur Culture Indicated? SARS-CoV-2 (PCR) Negative (Negative) Point of care testing: Point of Care Testing Test Results Negative Urine Dip Bedside Urine Glucose Negative Bedside Urine Bilirubin - Negative Bedside Urine Ketone - Negative Urine Specific [place] 1.025 Bedside Urine Occult Blood - Negative Bedside Urine pH 7.0 Bedside Urine Protein - Negative Bedside Urine Urobilinogen - Negative Bedside Urine Nitrite - Negative Bedside Urine Leukocytes + 70 Esterase Discharge Plan Departure Patient Disposition: Admitted As Inpatient Clinical Impression: Appendicitis Qualifiers: Appendicitis type: acute appendicitis Acute appendicitis type: unspecified acute appendicitis type Qualified Code(s): K35.80 - Unspecified acute appendicitis Admit Date/Time: 10/30/21 22:17 Admit Provider: Marcus Mills <Elio Worley DO - Last Filed: 10/31/21 06:04> Cosign ED Attending Cosignature Attestation: I was immediately available in the department for consultation. This documentation has been reviewed and I agree with assessment and plan. Supervised by Elio Worley DO
--- NOTE | 2021-10-30 17:11 | DI.US.S_ITS ---
PROCEDURE: US ABDOMEN LIMITED INDICATIONS: ruq pain TECHNIQUE: Real-time focused scanning was performed of the abdomen, with image documentation. COMPARISON: None. FINDINGS: The liver demonstrates mildly enlarged size. The liver demonstrates generalized moderately increased echogenicity. This decreases ultrasound sensitivity for detection of hepatic masses. No findings of gallstones or sludge are seen. The gallbladder wall is not thickened, measuring 3 mm or less. No specific pericholecystic fluid is seen. The sonographic Merida sign is negative. There is no biliary dilatation, the common bile duct measures 3 mm. The pancreas is not seen. This study is limited by body habitus. IMPRESSION: Limited study demonstrating no definite gallstones or other significant gallbladder abnormality. No biliary dilatation. Enlarged, fatty liver. Dictated by: Alli Romo M.D. on 10/30/2021 at 17:45 Approved by: Alli Romo M.D. on 10/30/2021 at 17:46
[2021-10-30 17:22] LABS: Add Manual Diff / Slide Review NO; Basophils Absolute Auto 0 /uL (0-100); Basophils Percent Auto 0.5 % (0-2); Eosinophils Absolute Auto 100 /uL (0-450); Eosinophils Percent Auto 1.2 % (2-4); Hematocrit 41.3 % (36-46); Hemoglobin 14.3 g/dL (12.0-16.0); Lymphocytes Absolute Auto 2600 /uL (1100-4500); Lymphocytes Percent Auto 25.1 % (25-40); Mean Corpuscular HGB Conc 34.6 % (30-36); Mean Corpuscular Hemoglobin 28.7 PG (26-34); Mean Corpuscular Volume 82.9 fL (80-100); Monocytes Absolute Auto 600 /uL (0-900); Neutrophils Absolute Auto 7000 /uL (1500-7000); Neutrophils Percent Auto 67.2 % (50-75); Platelet Count 286 X10^3/uL (150-400); Red Blood Cell Count 4.97 X10^6/uL (4.0-5.2); Red Cell Distribution Width 12.9 % (11.6-14.8); White Blood Cell Count 10.4 X10^3/uL (4.5-11.0)
[2021-10-30 17:28] LABS: Alanine Aminotransferase 21 IU/L (<35); Albumin 4.3 g/dL (3.5-5.0); Albumin Globulin Ratio 1.3 (1.0-2.8); Alkaline Phosphatase 67 U/L (38-126); Aspartate Aminotransferase 24 IU/L (14-36); BUN Creatinine Ratio 14.3 (6-22); Bilirubin Total 0.3 mg/dL (0.2-1.3); Blood Urea Nitrogen 10 mg/dL (7-17); Carbon Dioxide 29 mmol/L (22-32); Chloride 101 mmol/L (98-107); Estimated Glomerular Filt Rate > 60 mL/min (>60); Globulin 3.4 g/dL (1.7-4.1); Glucose 110 mg/dL (70-100); HEMOLYSIS 16 (0-50); Lipase 62 U/L (23-300); Potassium 3.9 mmol/L (3.4-5.1); Sodium 138 mmol/L (137-145); Total Protein 7.7 g/dL (6.3-8.2)
[2021-10-30 17:42] LABS: Bacteria Urine Few (2-10); RBC Urine None Seen (0-5/HPF); Squamous Epithelial Cell Urine 1-5 /HPF (0-5/HPF); WBC Urine 1-5/HPF (0-5/HPF)
[2021-10-30] MEDS: ONDANSETRON 4 MG/2 ML INJ IV (17:57)
[2021-10-30] MEDS: KETOROLAC 30 MG/ML VIAL 15 MG IV (17:57)
[2021-10-30] MEDS: NITROFURANTOIN ER 100 MG CAPSULE PO (18:15)
--- NOTE | 2021-10-30 18:28 | DI.CT.S_ITS ---
PROCEDURE: CT ABDOMEN PELVIS W CON INDICATIONS: rt sided abdominal pain tender over gallbladder and rlq TECHNIQUE: After the administration of oral and IV contrast, axial sections were acquired from the lung bases to the pubic symphysis. Coronal and sagittal reformats were performed. For radiation dose reduction, the following was used: automated exposure control, adjustment of mA and/or kV according to patient size. COMPARISON: [facility], , ABDOMEN LIMITED, 10/30/2021, 17:24. FINDINGS: Image quality: Excellent. Lung bases: Unremarkable. Heart: No significant findings. ABDOMEN: Liver: Unremarkable. Gallbladder: Normal appearance, without wall thickening or pericholecystic fluid. Biliary ducts: Unremarkable. Pancreas: Unremarkable. Spleen: The spleen is enlarged, measuring 16.3 cm AP. Adrenal Glands: Unremarkable. Kidneys and Ureters: Unremarkable. Stomach and Bowel: The appendix is abnormal, with wall hyperenhancement moderate surrounding inflammatory change. The appendix measures up to 14 mm and is seen within a retrocecal location. No associated abscess is seen. Mild wall thickening can be seen involving the cecum and the terminal ileum. No additional small bowel abnormality is seen. Peritoneum: No abnormal intraperitoneal fluid. No free air. Ventral Wall: No hernia. Abdominal Nodes: No retroperitoneal or mesenteric adenopathy by size criteria. Vessels: Aorta and inferior vena cava are normal in size. PELVIS: Pelvic Organs: The uterus appears normal for age. No adnexal masses are seen. Bladder: Unremarkable. Pelvic Nodes: No enlarged lymph nodes. Miscellaneous: No inguinal hernias are seen. Bones: Unremarkable. IMPRESSION: Acute appendicitis, without findings of perforation or abscess. Incidental note is made of: Mild splenomegaly Note: Case discussed by telephone with Cleopatra Wilson at 7:12 p.m. on October 30, 2021. Dictated by: Alli Romo M.D. on 10/30/2021 at 19:10 Approved by: Alli Romo M.D. on 10/30/2021 at 19:14
[2021-10-30] MEDS: PIPERACILLIN/TAZO 4.5 GM in SODIUM CHLORIDE 0.9% 100 ML IV (19:35)
[2021-10-30 20:06] LABS: COVID19 -Nasal RAPID Negative (Negative)
[2021-10-30] MEDS: LACTATED RINGERS 1,000 ML 100 ML IV (20:10)
[2021-10-30 22:24] VITALS: BMI 51.5
[2021-10-30 22:25] VITALS: BP 138/97; PULSE 69; RESP 14; TEMP 36.2; O2SAT 99
[2021-10-30] MEDS: SODIUM CHLORIDE 0.9% 1,000 ML 100 ML IV (23:45)
[2021-10-31] VITALS (19 sets, daily range): BP systolic 117–169; BP diastolic 69–101; PULSE 67–92; RESP 12–18; TEMP 35.6–36.8; O2SAT 92–99; BMI 51.2
--- NOTE | 2021-10-31 | PATH_ITS ---
[facility] Accession Number: [id number] . 01 Material submitted: . appendix - APPENDIX . 01 Clinical history: . WORSENING STOMACH PAINS 3X DAYS . 01 Diagnosis: Appendix, Appendectomy: Appendix with increased eosinophils within the muscularis propria, suggestive of possible evolving appendicitis. Please correlate with clinical and imaging findings. MRV 11/04/2021 1541 Local . 01 Electronically signed: . Rachelle Jarrell MD, Pathologist NPI- [id number] . 01 Gross description: . Received in formalin and labeled with the patient's name and appendix consists of a 7.5 x 1.1 cm vermiform appendix with a moderate amount of attached mesoappendix extending out to 2.1 cm. The mucosa is ellis and hemorrhagic with dilated vasculature. The surgical margin is received closed with lamberto, which are removed, and the margin is inked blue. The specimen is serially sectioned to reveal a patent pinpoint lumen and ellis thickened murry measuring up to 0.5 cm in greatest dimension. No lesions, perforations, or fecaliths are identified. Customer Support Executive sections to include one-half of the distal tip, surgical margin, and claims representative cross-sections are submitted in cassette A1. ([id number]) /MRV 11/03/2021 1831 Local . 01 Pathologist provided ICD-10: K35.80 . 01 CPT . 123314 Specimen Comment: A courtesy copy of this report has been sent to [phone] Performed at: 01 [facility] [address] [place] [address] [address], [place], [place] [id number] MD Karson Streeter MD Phone: [phone]
[2021-10-31] MEDS: ONDANSETRON 4 MG/2 ML INJ IV ×2 (01:53→21:39)
[2021-10-31] MEDS: HYDROMORPHONE 0.5 MG INJ IV ×5 (02:05→22:48)
[2021-10-31] MEDS: PIPERACILLIN/TAZO 3.375 GM in SODIUM CHLORIDE 0.9% 100 ML IV ×2 (04:34→13:37)
[2021-10-31] MEDS: SODIUM CHLORIDE 0.9% 1,000 ML 100 ML IV (10:05)
--- NOTE | 2021-10-31 12:22 | CM.DANOTE ---
Patient is a 26 yo female who was admitted on 10/30/21 for Stomach pains. Pt has [employer] and [facility] for insurance and her PCP is Bill Ansari. EMR was reviewed. Per Surgeon, pt with acute appendicitis and recommending surgical intervention. SW spoke to Surgeon who confirms plan of lap appe this afternoon down in the OR and then anticipates likely d/c home this evening vs tomorrow pending surgery. SW met bedside with pt and explained role and pt confirms she lives at home in [place] with her 5 yo son and is a single mother but son's father lives locally and can assist with their son some. Pt also has a couple local supportive sisters who can transport at d/c and provide assist as needed, especially with pt's 140 pound dog as pt will have restrictions on lifting and physical activities. 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 Pt does not anticipate much needs at d/c and feels confident with family assist as needed. Pt hopeful to d/c home tonight as she needs to get back to work and her son. Plan: SW to follow after surgery today to confirm safe plan of home with family assist and any further identified needs. BILLIE Rosales Discharge Planning/Care Management CM Discharge Assessment Start: 10/31/21 12:17 Freq: Status: Active Protocol: Document 10/31/21 12:18 BF (Rec: 10/31/21 12:22 [id number]) Discharge Planning Assessment Assigned Insurance Verification Rep BILLIE Wells DPOA/Assigned Designee Name informally sister Advance Directives? No Advance Directives on File No History Provided By Patient,Medical Record Has Patient been admitted in last 30 No days? Prior Living Arrangements Apartment/Condo Household Members children Comment Has 5 yo son at home, single mom but has local family support Type of transporation used prior to Drives own vehicle admit Independent with ADL's Yes Is patient alert and oriented? Yes Caregiver for Another Yes: 5 yo son Barriers to Discharge No Discharge Plan Home Transportation Arrangement sister to provide transport at d/c Referrals Initiated None needed Whiteboard Updated in Patient Room with Yes name and ext. # of Insurance Verification Rep Review Status In Process Please Provide Date Initial DC 10/31/21 Assessment Was Performed Next Review Type Continued Stay Review
--- NOTE | 2021-10-31 18:37 | P.HP_ITS ---
History of Present Illness History of Present Illness Date Patient Seen: 10/31/21 Chief complaint: Worsening stomach pains 3x days Narrative: 26-year-old woman admitted to the hospital with acute appendicitis. she describes several days of generalized abdominal pain becoming focused to the right lower quadrant. She presented to the emergency room yesterday for evaluation CT abdomen pelvis demonstrates a retrocecal acutely inflamed appendix which is dilated Sammarinese stranding no abscess or free air. Laboratory studies unremarkable. she has been maintained on IV Zosyn and fluids. Her pain is improved from yesterday. Prior abdominal surgery includes Caesarean section. Patient History Medical History Anxiety Blood pressure elevated without history of HTN Common migraine Depression (2013) Gastroesophageal reflux disease Headache, chronic daily IBS (irritable bowel syndrome) Muscle tightness Right anterior knee pain Screening for STD (sexually transmitted disease) Surgical History Status post delivery (11/18/16) Family & Social History Social History: household members children Prior Living Arrangements Apartment/Condo Safety & Behavioral: Feels Safe in Current Yes Environment Been Physically Hurt or No Threatened By a Person Tobacco & Substance use: Smoking Status Never smoker alcohol intake current alcohol intake frequency holiday/special occasion Substance Use Type marijuana Meds Home Medications and Allergies Home Medications Medication Instructions Recorded Confirmed Type fluoxetine 60 mg tablet 60 mg PO QAM #90 tabs 02/13/21 10/30/21 Rx rizatriptan 5 mg tablet See Rx Instructions PO .COMPLEX 02/13/21 10/30/21 Rx #30 tabs albuterol sulfate 2.5 mg/3 mL 2.5 mg (3 mL) inhalation Q4-6H PRN 06/05/21 10/30/21 Rx (0.083 %) solution for nebulization shortness of breath or wheezing #90 mL albuterol sulfate 90 mcg/actuation 2 puff inhalation Q4HP PRN 06/05/21 10/30/21 Rx aerosol inhaler (Ventolin HFA) shortness of breath or wheezing #1 ea nebulizers #1 ea 06/05/21 10/30/21 Rx Allergies Allergy/AdvReac Type Severity Reaction Status Date / Time cephalexin [From KEFLEX] AdvReac Mild nausea Verified 10/02/21 07:42 Exam Vital Signs (past 8 hours): - 10/31/21 11:22 10/31/21 16:24 10/31/21 16:31 Temperature 96.0 F L Pulse Rate 67 75 Respiratory Rate 18 18 Blood Pressure 135/79 Pulse Oximetry 95 96 Oxygen Flow Rate 0 0 10/31/21 16:32 10/31/21 17:40 Temperature 96.8 F L Pulse Rate 74 Respiratory Rate Blood Pressure 132/81 Pulse Oximetry Oxygen Flow Rate Oxygen Delivery Method Room Air Oxygen Flow Rate 0 Narrative Exam Narrative: General adult woman alert oriented no acute distress Chest nonlabored respiration Abdomen tender right lower quadrant. No peritonitis. Extremities warm well perfused Objective Labs Result Diagrams: 10/30/21 16:30 10/30/21 16:30 Labs: Laboratory Results - last 24 hr 10/30/21 19:27 SARS-CoV-2 (PCR) Negative Assessment & Plan Assessment and plan (1) Appendicitis: Qualifiers: Acute appendicitis type: unspecified acute appendicitis type Appendicitis type: acute appendicitis Qualified Code(s): K35.80 - Unspecified acute appendicitis Status: Acute Assessment & Plan narrative: 26-year-old woman with morbid obesity and acute appendicitis. CT abdomen pelvis was reviewed which demonstrates a retrocecal acutely inflamed appendix without evidence of abscess. We discussed management options including medical therapy with continued antibiotic treatment or surgical intervention. Her preference is to proceed with a laparoscopic appendectomy. Overview of the operation was discussed with the patient. Operative risks including bleeding, infection, staple line leak, damage to surrounding structures, anesthetic compli cation were discussed. Her questions have been answered and she is in agreement with this plan. Time Spent With Patient Critical Care time: I spent a total of [] minutes of critical care time on this patient's care today; this time is exclusive of procedural time. Quality VTE Deep Vein Thrombosis/Pulmonary Embolism Present on Admission: No
[2021-10-31] MEDS: LACTATED RINGERS 1,000 ML 42 ML IV ×2 (19:13→20:31)
[2021-10-31] MEDS: BUPIVACAINE 0.5% (PF) VIAL 30 ML INJ (20:28)
--- NOTE | 2021-10-31 20:38 | SUR.OPER ---
Supine on padded OR bed and pink pad, head on pillow, right arms secured on padded arm boards at <90 degrees abduction, left arm padded and tucked, legs uncrossed, safety belt at thigh, tape over blanket over lower legs. Purple safety strap across chest
--- NOTE | 2021-10-31 21:31 | PM.OP.1 ---
Operative Date/Time/Diagnoses Date of procedure: 10/31/21 Time of procedure: 21:31 Pre-op diagnosis: Acute appendicitis Post-op diagnosis: same Procedure & Clinicians Procedure: Laparoscopic appendectomy Same procedure as scheduled: Yes Indications: Symptoms and radiographic findings consistent with acute appendicitis without abscess Surgeon: Marcus Mills Click Yes if Unassisted: Yes Anesthesia Type: General Operative Notes Findings: Acutely inflamed appendix without perforation in retrocecal position Specimen(s): other (Appendix) Estimated Blood Loss (mL): 50 Procedure in detail: Patient was brought to the operating room placed supine on the table. Bilateral lower extremity compression devices were applied. Anesthesia was induced and they intubated with an endotracheal tube. They received 3.375 g of Zosyn prior to skin incision. The left arm was tucked and appropriately padded. They were prepped and draped in sterile fashion. Time-out was performed. An infraumbilical incision was made the umbilical stalk was grasped and elevated and incision was made and the abdomen was entered atraumatically. A 12 mm balloon trocar was then placed through the incision and pneumoperitoneum of 14 mm Hg was established. The scope was then inserted and the abdomen inspected, there was no evidence of injury upon entry. Two 5 mm ports were placed under direct visualization, one in the left lower quadrant and second in the lower midline. A thorough laparoscopic evaluation was performed inspecting all four quadrants. The patient was then tilted right side up. The small bowel was then swept to the upper aspect of the abdomen. The tenie were followed to the base of the cecum where the appendix was identified. It was partially retrocecal and I mobilized the cecum medially in order to completely expose it by incising the white line of Toldt. The appendix was was mobilized from its lateral attachments. It was acutely inflamed but not perforated. The appendix was grasped and a window within the mesentery was made at the base of the appendix using the [place] dissector with care to avoid injuring the cecum. The mesoappendix was then divided using the endo-stapler with a staple length of 2.5 mm-white load. The mesenteric staple line was inspected for hemostasis. The appendix was then amputated flush at the cecum using the endo-stapler blue load. The specimen was retrieved using a endoscopic retrieval bad through the 10 mm infra-umbilical port. The right paracolic gutter and the pouch of Alhaji were irrigated The 5 mm ports were then removed under direct visualization. The umbilical fascial incision was closed with 0 Vicryl in a figure-eight fashion. The skin wounds were irrigated and closed with 4-0 Monocryl followed by the application of Dermabond. Sponge instrument count at the end of the operation was correct. The patient tolerated procedure well was extubated and transferred to the postoperative care unit in stable condition. Complications: none Post-operative Condition: stable Disposition: Acute Care
[2021-10-31] MEDS: HYDROMORPHONE 2 MG INJ IV (21:38)
[2021-10-31] MEDS: SODIUM CHLORIDE 0.9% FLUSH 10 ML IV (23:00)
[2021-11-01 00:45] VITALS: BP 140/87; PULSE 80; O2SAT 95
[2021-11-01 02:30] VITALS: BP 127/66; PULSE 84; RESP 14; TEMP 36.7; O2SAT 98
[2021-11-01] MEDS: HYDROMORPHONE 0.5 MG INJ IV (02:44)
[2021-11-01 06:00] VITALS: BP 135/68; PULSE 78; RESP 14; TEMP 36.4; O2SAT 98
[2021-11-01 07:50] VITALS: BP 131/82; PULSE 78; RESP 16; TEMP 36.1; O2SAT 96
[2021-11-01] MEDS: OXYCODONE IR 5 MG TABLET PO (09:10)
[2021-11-01] MEDS: FLUoxetine 20 MG CAPSULE 60 MG PO (09:10)
--- NOTE | 2021-11-01 10:46 | PC.NURSE ---
Assess-Patient is alert and oriented x4, she has 3 small incisions to umblicus and abdomen. 2 of the incisions are open to air and glued together with durmobond, the other has steri strips intact. Patient given oxycodone 5mg a couple of hours ago and denies pain. She will be going home today and is comfortable at this time.
--- NOTE | 2021-11-01 12:40 | CM.DPC ---
DCP Discharge Home Per Surgeon, pt tolerated lap appe well and medically stable to d/c home today with no identified barriers to discharge. Per RN, pt independent in room and no concerns at this time and pt agreeable with d/c home later today. Plan: Patient to d/c home today via family POV and no further SW needs at this time. BILLIE Rosales
== END 2021-11-01 14:00 | disposition home or self-care (01) ==
LOC: ED 20:02 → AC 10-31 07:49
PROVIDERS: Admitting Provider Surgery; Emergency Provider Nurse Practitioner Critical Care Medicine; PCP Registered Nurse Diabetes Educator; Referring Provider Emergency Medicine; Visit Provider Surgery
PROC: 0DTJ4ZZ Resection of Appendix, Percutaneous Endoscopic Approach (ICD-10-PCS; CPT 44970; principal; 2021-10-31 16:00)
DX: K35.80 Unspecified acute appendicitis (principal); K21.9 Gastro-esophageal reflux disease without esophagitis; J45.909 Unspecified asthma, uncomplicated; E66.9 Obesity, unspecified; Z20.822 Contact with and (suspected) exposure to COVID-19
CPT/HCPCS: 44970; 36415; 74177; 76705; 80053; 81003; 81015; 81025; 83690; 85025; 87077; 87086; 87635; 99222; 99284; C9803; G0378; A9270; J0330; J1100; J1170; J1885; J2405; J2543; J2704; J3010; Q9967

== ENCOUNTER 2022-01-23 07:03 | Emergency (ER) | payer OTHER, MEDICAID, SELFPAY ==
[2022-01-23 07:21] VITALS: BP 179/90; PULSE 103; RESP 16; TEMP 37.7; O2SAT 100; BMI 51.5
[2022-01-23 07:30] VITALS: BP 169/90; PULSE 107; RESP 20; O2SAT 98
[2022-01-23 08:00] VITALS: BP 154/79; PULSE 120; RESP 22; O2SAT 98
[2022-01-23 08:23] VITALS: TEMP 37.7
[2022-01-23] MEDS: ACETAMINOPHEN 325 MG TABLET 975 MG PO (08:23)
[2022-01-23 08:25] LABS: Adenovirus Not Detected (Not Detect); Coronavirus 229E Not Detected (Not Detect); Coronavirus HKU1 Not Detected (Not Detect); Coronavirus NL 63 Not Detected (Not Detect); Coronavirus OC43 Not Detected (Not Detect); Human Metapneumovirus Not Detected (Not Detect); Human Rhinovirus/Enterovirus Not Detected (Not Detect); Influenza A Not Detected (Not Detect); Influenza B Not Detected (Not Detect); Parainfluenza Virus 1 Not Detected (Not Detect); Parainfluenza Virus 2 Not Detected (Not Detect); Parainfluenza Virus 3 Not Detected (Not Detect); Parainfluenza Virus 4 Not Detected (Not Detect); Respiratory Syncytial Virus Detected (Not Detect); SARS- CoV-2 Not Detected (Not Detecte)
[2022-01-23 08:26] LABS: B. parapertussis Not Detected (Not Detecte); Bordetella pertussis Not Detected (Not Detecte); Chlamydophila pneumoniae Not Detected (Not Detect); Mycoplasma pneumoniae Not Detected (Not Detect)
--- NOTE | 2022-01-23 08:28 | ED.URI ---
HPI - URI/Sore Throat General Chief Complaint: Upper Respiratory Symptoms Stated Complaint: severe cough,hard to breathe,Naseaous,x1day Time Seen by Provider: 01/23/22 08:09 History of Present Illness HPI Narrative: Patient is a 26-year-old female history of anemia presenting today with cough which is progressively got worse over last 24 hours. She says that she has had a cough for about 1 week. Her baby was sick with a runny nose and fever previously. Now she has low-grade fever she says she just can not stop coughing. She has albuterol home she actually used albuterol last night in her nebulizer she says usually it helps but last night it made it worse. She denies any other symptoms. She denies shortness of breath or chest pain Related Data Previous Rx's Medication Instructions Recorded fluoxetine 60 mg tablet 60 mg PO QAM #90 tabs 02/13/21 rizatriptan 5 mg tablet See Rx Instructions PO .COMPLEX 02/13/21 #30 tabs albuterol sulfate 2.5 mg/3 mL 2.5 mg (3 mL) inhalation Q4-6H PRN 06/05/21 (0.083 %) solution for nebulization shortness of breath or wheezing #90 mL albuterol sulfate 90 mcg/actuation 2 puff inhalation Q4HP PRN 06/05/21 aerosol inhaler (Ventolin HFA) shortness of breath or wheezing #1 ea nebulizers #1 ea 06/05/21 acetaminophen 325 mg capsule 650 mg PO QID PRN pain #60 caps 10/31/21 (Tylenol) ibuprofen 200 mg tablet 400 mg PO Q6H #60 tabs 10/31/21 Allergies Allergy/AdvReac Type Severity Reaction Status Date / Time No Known Drug Allergies Allergy Verified 11/22/21 09:19 Review of Systems Review of Systems Narrative: GENERAL: Denies chills, fatigue, malaise, fever, sweats, travel HEENT: Denies sinus pain, ear pain, sore throat, difficulty swallowing, neck pain RESPIRATORY: See HPI CARDIOVASCULAR: Denies chest pain, palpitations, orthopnea, edema GASTROINTESTINAL: Denies nausea, vomiting, abdominal pain, diarrhea, constipation, melena. : Denies dysuria, frequency, incontinence, hematuria, urinary retention, flank pain. MUSCULOSKELETAL: Denies weakness, joint pain, or bony pain SKIN: No rash, no erythema, no pruritus NEUROLOGIC: Denies weakness, dizziness, headache, numbness, change in speech, confusion PSYCHIATRIC: No concerning psychosocial issues. 12 point review of systems is negative except for those stated above and HPI Patient History Medical History Anxiety Blood pressure elevated without history of HTN Common migraine Depression (2013) Gastroesophageal reflux disease Headache, chronic daily IBS (irritable bowel syndrome) Muscle tightness Right anterior knee pain Screening for STD (sexually transmitted disease) Surgical History Status post delivery (11/18/16) Social History household members: children Smoking Status: Never smoker alcohol intake: current Smoking Status: Never smoker alcohol intake frequency: holidays/special occasions only Substance Use Type: marijuana Exam Initial Vital Signs Initial Vital Signs: Vital Signs Temperature 99.9 F H 01/23/22 07:21 Pulse Rate 103 H 01/23/22 07:21 Respiratory Rate 16 01/23/22 07:21 Blood Pressure 179/90 H 01/23/22 07:21 Pulse Oximetry 100 01/23/22 07:21 Oxygen Delivery Method 01/23/22 07:21 GENERAL: Alert 26-year-old female BMI 51 appears to not feel well and in no acute distress. HEENT: Head atraumatic,EOMI, pupils reactive, face symmetric, moist mucous membranes CARDIOVASCULAR: Regular rate and rhythm without murmurs, rubs or gallops. RESPIRATORY: Clear bilaterally no wheezes rales or rhonchi speaks in full sentences no coughing with deep breath ABDOMEN: Soft, nontender. Normoactive bowel sounds all 4 quadrants. No guarding or rebound. EXTREMITIES: Normal range of motion, no clubbing or edema. Neurovascularly intact NEUROLOGICAL: Alert and oriented x4.Normal gait and speech. SKIN: Warm, dry, no laceration, no petechiae, no rashes or lesions. Course Orders Ordered: ED Orders 01/23/22 07:16 Respiratory Panel (Film Array) Stat Discontinued Medications Acetaminophen (Acetaminophen 325 Mg Tablet) 975 mg PO NOW ONE Stop: 01/23/22 08:16 Last Admin: 01/23/22 08:23 Dose: 975 mg Documented By: RB Vital Signs Vital signs: Vital Signs - 8 hr 01/23/22 07:21 01/23/22 07:30 01/23/22 08:00 Temperature 99.9 F H Pulse Rate 103 H 107 H 120 H Respiratory Rate 16 20 22 Blood Pressure 179/90 H 169/90 H 154/79 H Pulse Oximetry 100 98 98 Oxygen Delivery Method Room Air Room Air Room Air 01/23/22 08:23 01/23/22 08:47 01/23/22 08:48 Temperature 99.8 F H 98.2 F 98.2 F Pulse Rate 103 H Respiratory Rate 18 Blood Pressure 135/66 Pulse Oximetry 97 Oxygen Delivery Method Room Air MDM - URI/Sore Throat Lab Data Labs: Lab Results 01/23/22 Range/Units 07:16 Chlamy pneumoniae PCR Not detected (Not Detect) Adenovirus (PCR) Not detected (Not Detect) B. pertussis DNA (PCR) Not detected (Not Detecte) B.parapertussis DNA PCR Not detected (Not Detecte) Coronavirus OC43 (PCR) Not detected (Not Detect) Coronavirus HKU1 (PCR) Not detected (Not Detect) Coronavirus 229E (PCR) Not detected (Not Detect) SARS-CoV-2 (PCR) Not detected (Not Detecte) Coronavirus NL63 (PCR) Not detected (Not Detect) Human Metapneumovir PCR Not detected (Not Detect) Influenza Type A (PCR) Not detected (Not Detect) Influenza Type B (PCR) Not detected (Not Detect) M. pneumoniae (PCR) Not detected (Not Detect) Parainfluenza 1 (PCR) Not detected (Not Detect) Parainfluenza 2 (PCR) Not detected (Not Detect) Parainfluenza 3 (PCR) Not detected (Not Detect) Parainfluenza 4 (PCR) Not detected (Not Detect) RSV (PCR) Detected H (Not Detect) Entero/Rhino (PCR) Not detected (Not Detect) Point of Care Testing Test Results Negative Urine Dip Bedside Urine Glucose Negative Bedside Urine Bilirubin - Negative Bedside Urine Ketone - Negative Urine Specific [place] 1.020 Bedside Urine Occult Blood - Negative Bedside Urine pH 6.0 Bedside Urine Protein - Negative Bedside Urine Urobilinogen - Negative Bedside Urine Nitrite - Negative Bedside Urine Leukocytes - Negative Esterase MDM Narrative Medical decision making narrative: Patient has low-grade fever cough and body aches. Respiratory panel is positive for RSV similar to what her baby had previously. She has an albuterol and nebulizer home no wheezing here. Discharge Plan Departure Patient Disposition: Home Clinical Impression: RSV infection Instructions: DI for Respiratory Syncytial Virus -- Adults Activity Restrictions/Additional Instructions: *You have been diagnosed with RSV *What to do: You have a very common respiratory viruses that he likely caught from your child. Had causes significant nasal drainage anywhere coughing likely for postnasal drip. Recommend frequent blowing of nose may try a Neti pot in the shower. This will run its course. Fever control as needed with Tylenol or Motrin and stay hydrated *Continue to take medications as directed Tylenol 1000 mg every 6 hours if needed for pain or fever Motrin 600 mg every 6 hours if needed for pain or fever *Follow up with your primary care provider in 2-3 days or call [phone] *Return to ER if you should have increasing shortness of breath, increased weakness or any new, worsening or concerning symptoms Prescriptions: No Action albuterol sulfate 2.5 mg /3 mL (0.083 %) solution for nebulization 2.5 mg inhalation Q4-6H PRN (Reason: shortness of breath or wheezing) Qty: 90 0RF (DME) nebulizers Misc See Rx Instructions .Route Qty: 1 0RF Rx Instructions: USE TO ADMINISTER ALBUTEROL SOLUTION Q4-6H PRN albuterol sulfate [Ventolin HFA] 90 mcg/actuation HFA aerosol inhaler 2 puff inhalation Q4HP PRN (Reason: shortness of breath or wheezing) Qty: 1 0RF fluoxetine 60 mg tablet 60 mg PO QAM Qty: 90 3RF rizatriptan 5 mg tablet See Rx Instructions PO .COMPLEX Qty: 30 5RF Rx Instructions: take 1 tablet at onset of headache; if no relief, may repeat 1 tablet after at least 2 hrs PO ibuprofen 200 mg tablet 400 mg PO Q6H Qty: 60 0RF acetaminophen [Tylenol] 325 mg capsule 650 mg PO QID PRN (Reason: pain) Qty: 60 0RF Referrals: Bill Ansari ARNP [Primary Care Provider] - Visit Report Forms: Patient Portal/API
[2022-01-23 08:47] VITALS: TEMP 36.8
[2022-01-23 08:48] VITALS: BP 135/66; PULSE 103; RESP 18; TEMP 36.8; O2SAT 97
== END 2022-01-23 08:50 | disposition home or self-care (01) ==
PROVIDERS: Emergency Provider Emergency Medicine; PCP Registered Nurse Diabetes Educator
DX: J06.9 Acute upper respiratory infection, unspecified (principal); B97.4 Respiratory syncytial virus as the cause of diseases classified elsewhere; Z20.822 Contact with and (suspected) exposure to COVID-19
CPT/HCPCS: 81003; 81025; 87633; 99282; 99283

== ENCOUNTER → 2022-03-31 13:44 | Outpatient (CLI) | payer OTHER, MEDICAID, SELFPAY ==
[2022-03-31 16:06] LABS: Urine N gonorrhoeae NOT DETECTED
[2022-03-31 16:10] LABS: Urine Chlamydia NOT DETECTED
== END ==
PROVIDERS: PCP Registered Nurse Diabetes Educator; Visit Provider Registered Nurse
DX: Z11.3 Encounter for screening for infections with a predominantly sexual mode of transmission (principal); N89.8 Other specified noninflammatory disorders of vagina
CPT/HCPCS: 87210; 87491; 87591

== ENCOUNTER → 2022-04-01 09:10 | Outpatient (CLI) | payer OTHER, MEDICAID, SELFPAY ==
[2022-04-01 11:20] LABS: HIV 1 & 2 Ab/Ag 4th Gen Combo NEGATIVE (NEGATIVE); Hep C Virus Ab w/Reflex Quant NEGATIVE s/c (NEGATIVE)
[2022-04-02 05:24] LABS: RPR Screen Non Reactive (Non Reactive)
[2022-04-02 07:39] LABS: HSV 2 IGG AB < 0.91 index (0.00-0.90); HSV1IGG > 62.20 index (0.00-0.90)
[2022-04-03 10:08] LABS: Hepatitis B Virus HBV DNA not detected IU/mL (.)
== END ==
PROVIDERS: PCP Registered Nurse Diabetes Educator; Referring Provider Registered Nurse; Visit Provider Registered Nurse
DX: N89.8 Other specified noninflammatory disorders of vagina (principal)
CPT/HCPCS: 36415; 86592; 86695; 86696; 86803; 87389

== ENCOUNTER → 2022-04-09 15:11 | Outpatient (CLI) | payer OTHER, MEDICAID, SELFPAY ==
[2022-04-09 17:28] LABS: Hematocrit 38.9 % (36-46); Hemoglobin 13.5 g/dL (12.0-16.0); Mean Corpuscular HGB Conc 34.6 % (30-36); Mean Corpuscular Volume 83.9 fL (80-100); Platelet Count 325 X10^3/uL (150-400); Red Blood Cell Count 4.64 X10^6/uL (4.0-5.2); Red Cell Distribution Width 13.4 % (11.6-14.8); White Blood Cell Count 9.2 X10^3/uL (4.5-11.0)
== END ==
PROVIDERS: PCP Registered Nurse Diabetes Educator; Referring Provider Registered Nurse Diabetes Educator; Visit Provider Registered Nurse Diabetes Educator
DX: R53.83 Other fatigue (principal)
CPT/HCPCS: 36415; 85027

== ENCOUNTER → 2022-05-13 14:56 | Outpatient (CLI) | payer OTHER, MEDICAID, SELFPAY | PROVIDERS: PCP Registered Nurse Diabetes Educator; Visit Provider Family Medicine | DX: N89.8 Other specified noninflammatory disorders of vagina (principal) | CPT/HCPCS: 87210 ==

== ENCOUNTER → 2022-05-13 15:50 | Outpatient (CLI) | payer OTHER, MEDICAID, SELFPAY ==
[2022-05-13 17:28] LABS: Hemoglobin A1C% w Est Avg Glu 5.2 % (4.0-6.0)
[2022-05-13 17:33] LABS: Add Manual Diff / Slide Review NO; Basophils Absolute Auto 0 /uL (0-100); Basophils Percent Auto 0.4 % (0-2); Eosinophils Absolute Auto 100 /uL (0-450); Hematocrit 38.9 % (36-46); Hemoglobin 13.3 g/dL (12.0-16.0); Lymphocytes Absolute Auto 2200 /uL (1100-4500); Mean Corpuscular HGB Conc 34.1 % (30-36); Mean Corpuscular Hemoglobin 28.2 PG (26-34); Mean Corpuscular Volume 82.6 fL (80-100); Monocytes Absolute Auto 700 /uL (0-900); Monocytes Percent Auto 6.6 % (3-14); Neutrophils Absolute Auto 7300 /uL (1500-7000); Platelet Count 324 X10^3/uL (150-400); Red Blood Cell Count 4.72 X10^6/uL (4.0-5.2); Red Cell Distribution Width 12.9 % (11.6-14.8); White Blood Cell Count 10.3 X10^3/uL (4.5-11.0)
[2022-05-13 17:49] LABS: Alanine Aminotransferase 27 IU/L (<35); Albumin 4.1 g/dL (3.5-5.0); Albumin Globulin Ratio 1.3 (1.0-2.8); Alkaline Phosphatase 83 U/L (38-126); Aspartate Aminotransferase 24 IU/L (14-36); BUN Creatinine Ratio 16.7 (6-22); Bilirubin Total 0.4 mg/dL (0.2-1.3); Blood Urea Nitrogen 11 mg/dL (7-17); Calcium 8.9 mg/dL (8.4-10.2); Carbon Dioxide 27 mmol/L (22-32); Chloride 100 mmol/L (98-107); Cholesterol 198 mg/dL (140-199); Estimated Glomerular Filt Rate > 60 mL/min (>60); Globulin 3.2 g/dL (1.7-4.1); Glucose 99 mg/dL (70-100); HDL Cholesterol 59 mg/dL (40-60); HEMOLYSIS < 15 (0-50); LDL Cholesterol Calculated 112 mg/dL (<100); Lipase 42 U/L (23-300); Potassium 4.2 mmol/L (3.4-5.1); Sodium 137 mmol/L (137-145); Total Protein 7.3 g/dL (6.3-8.2); Triglycerides 133 mg/dL (35-150)
== END ==
PROVIDERS: PCP Registered Nurse Diabetes Educator; Referring Provider Family Medicine; Visit Provider Family Medicine
DX: N89.8 Other specified noninflammatory disorders of vagina (principal); R10.10 Upper abdominal pain, unspecified; R11.2 Nausea with vomiting, unspecified; Z13.1 Encounter for screening for diabetes mellitus; Z13.220 Encounter for screening for lipoid disorders
CPT/HCPCS: 36415; 80053; 80061; 81002; 81025; 83036; 83690; 85025; 87210

== ENCOUNTER → 2022-05-19 09:16 | Outpatient (CLI) | payer OTHER, MEDICAID, SELFPAY ==
--- NOTE | 2022-05-19 09:17 | DI.US.S_ITS ---
PROCEDURE: US ABDOMEN LIMITED INDICATIONS: N/V; RUQ PAIN TECHNIQUE: Real-time scanning was performed of the abdominal and retroperitoneal organs, with image documentation. COMPARISON: [facility], , US ABDOMEN LIMITED, 10/30/2021, 17:24. FINDINGS: Liver: Increased liver echogenicity with posterior attenuation, most consistent with moderate to severe steatosis. Gallbladder: Unremarkable. Biliary ducts: Intrahepatic bile ducts are non-dilated. Extrahepatic bile duct caliber measures 5 mm. Normal is 6-7 mm or less in diameter, or 10 mm or less post-cholecystectomy. Pancreas: Visualized portions of the pancreas are sonographically normal. IMPRESSION: Oaxisdwh-ay-uyickz hepatic steatosis. Dictated by: Elvin Ohara M.D. on 05/19/2022 at 10:36 Approved by: Elvin Ohara M.D. on 05/19/2022 at 10:37
== END ==
PROVIDERS: PCP Registered Nurse Diabetes Educator; Referring Provider Family Medicine; Visit Provider Family Medicine
DX: K76.0 Fatty (change of) liver, not elsewhere classified (principal); R11.2 Nausea with vomiting, unspecified; R10.10 Upper abdominal pain, unspecified
CPT/HCPCS: 76705

== ENCOUNTER → 2022-06-13 09:43 | Outpatient (CLI) | payer OTHER, MEDICAID, SELFPAY ==
--- NOTE | 2022-06-13 09:44 | DI.NM.S_ITS ---
PROCEDURE: NM HIDA WITH CCK PHARMACEUTICAL: 5.3 mCi Tc-99m mebrofenin IV; 2.7 mcg CCK IV. INDICATIONS: upper quad abd pain. nausea after eating. normal US TECHNIQUE: Following intravenous administration of Tc-99m mebrofenin, sequential anterior abdominal images were obtained. To evaluate the contractile response of the gallbladder in response to Cholecystokinin (CCK), sincalide (0.02 ?g/kg) was administered by slow intravenous infusion approximately 60 minutes after the administration of the radiopharmaceutical. Sequential imaging was continued for 30 minutes after the start of CCK infusion. Gallbladder ejection fraction was calculated. COMPARISON: None. FINDINGS: Biliary scan: There is normal tracer uptake and excretion by the liver. There is normal visualization of the intrahepatic ducts, common bile duct, and gallbladder. There is normal tracer transit into the duodenum. CCK stimulation: There is appropriate contractile response of the gallbladder to CCK infusion. The calculated gallbladder ejection fraction is 95% ; normal values are above 35%. It has been shown that any patient abdominal pain after CCK administration is related to the rate of CCK injection, rather than to any underlying gallbladder disease (Clinical Nuclear Medicine 2012; 37: 63-70. Journal of Nuclear Medicine 2014; 55: 1-9). IMPRESSION: No evidence of cholecystitis. Dictated by: Deshawn Hairston M.D. on 06/13/2022 at 13:34 Transcribed by: JODI on 06/13/2022 at 13:35 Approved by: Deshawn Hairston M.D. on 06/13/2022 at 16:23
== END ==
PROVIDERS: PCP Registered Nurse Diabetes Educator; Referring Provider Family Medicine; Visit Provider Family Medicine
DX: R11.2 Nausea with vomiting, unspecified (principal); R10.10 Upper abdominal pain, unspecified
CPT/HCPCS: 78227; A9537; J2805

== ENCOUNTER → 2022-07-07 08:46 | Outpatient (CLI) | payer OTHER, MEDICAID, SELFPAY ==
[2022-07-07 10:01] LABS: Add Manual Diff / Slide Review NO; Basophils Absolute Auto 0 /uL (0-100); Basophils Percent Auto 0.5 % (0-2); Eosinophils Absolute Auto 100 /uL (0-450); Eosinophils Percent Auto 1.9 % (2-4); Hematocrit 42.1 % (36-46); Hemoglobin 14.2 g/dL (12.0-16.0); Lymphocytes Absolute Auto 2800 /uL (1100-4500); Mean Corpuscular HGB Conc 33.8 % (30-36); Mean Corpuscular Hemoglobin 28.1 PG (26-34); Mean Corpuscular Volume 83.1 fL (80-100); Monocytes Absolute Auto 500 /uL (0-900); Monocytes Percent Auto 7.3 % (3-14); Neutrophils Absolute Auto 3900 /uL (1500-7000); Neutrophils Percent Auto 52.3 % (50-75); Platelet Count 336 X10^3/uL (150-400); Red Blood Cell Count 5.07 X10^6/uL (4.0-5.2); Red Cell Distribution Width 13.3 % (11.6-14.8); White Blood Cell Count 7.5 X10^3/uL (4.5-11.0)
[2022-07-07 10:28] LABS: Alanine Aminotransferase 27 IU/L (<35); Albumin 4.1 g/dL (3.5-5.0); Albumin Globulin Ratio 1.2 (1.0-2.8); Alkaline Phosphatase 83 U/L (38-126); Amylase 48 U/L (30-110); Aspartate Aminotransferase 25 IU/L (14-36); BUN Creatinine Ratio 14.3 (6-22); Bilirubin Total 0.3 mg/dL (0.2-1.3); Blood Urea Nitrogen 11 mg/dL (7-17); Calcium 9.3 mg/dL (8.4-10.2); Carbon Dioxide 31 mmol/L (22-32); Chloride 99 mmol/L (98-107); Estimated Glomerular Filt Rate > 60 mL/min (>60); Globulin 3.4 g/dL (1.7-4.1); Glucose 99 mg/dL (70-100); Lipase 53 U/L (23-300); Potassium 4.3 mmol/L (3.4-5.1); Sodium 138 mmol/L (137-145); Total Protein 7.5 g/dL (6.3-8.2)
[2022-07-07 10:29] LABS: HEMOLYSIS < 15 (0-50)
[2022-07-07 10:47] LABS: HCG Quantitative /Beta subunit < 2.4 mIU/mL; Prolactin 14.8 ng/mL (3.0-18.6)
[2022-07-07 10:55] LABS: Follicle Stimulating Hormone 4.45 mIU/mL
[2022-07-07 10:56] LABS: TSH w/ Reflex to FT4 1.86 uIU/mL (0.47-4.68)
[2022-07-07 11:05] LABS: Ferritin 19 ng/mL (6-137); Testosterone 22.4 ng/dL (5.71-77.0)
== END ==
PROVIDERS: PCP Registered Nurse Diabetes Educator; Referring Provider Registered Nurse Diabetes Educator; Visit Provider Registered Nurse Diabetes Educator
DX: L68.0 Hirsutism (principal); N91.2 Amenorrhea, unspecified; R10.11 Right upper quadrant pain; R10.13 Epigastric pain; R11.2 Nausea with vomiting, unspecified; R94.8 Abnormal results of function studies of other organs and systems; K76.0 Fatty (change of) liver, not elsewhere classified
CPT/HCPCS: 36415; 80053; 82150; 82728; 83001; 83498; 83690; 84146; 84403; 84443; 84702; 85025

== ENCOUNTER → 2022-07-11 10:20 | Outpatient (CLI) | payer OTHER, MEDICAID, SELFPAY ==
--- NOTE | 2022-07-11 10:21 | DI.CT.S_ITS ---
PROCEDURE: CT ABDOMEN PELVIS W CON INDICATIONS: abdominal pain TECHNIQUE: After the administration of oral and IV contrast, axial sections were acquired from the lung bases to the pubic symphysis. Coronal and sagittal reformats were performed. For radiation dose reduction, the following was used: automated exposure control, adjustment of mA and/or kV according to patient size. COMPARISON: [facility], [place], [place] HIDA WITH CCK, 06/13/2022, 10:04. [facility], [place], US ABDOMEN LIMITED, 05/19/2022, 9:28. [facility], [place], CT ABDOMEN PELVIS W CON, 10/30/2021, 18:40. FINDINGS: Image quality: Excellent. Lung bases: Unremarkable. Heart: No significant findings. ABDOMEN: Liver: Mild hepatic steatosis. Liver is normal in size. Gallbladder: Unremarkable. Biliary ducts: Unremarkable. Pancreas: Unremarkable. Spleen: Unremarkable. Adrenal Glands: Unremarkable. Kidneys and Ureters: Unremarkable. Stomach and Bowel: Stomach, small bowel loops, and colon are normal in caliber. Appendix is not visualized, likely surgically resected. There is mild thickening of cecum and terminal ileum Peritoneum: No abnormal intraperitoneal fluid. No free air. Ventral Wall: No hernia. Abdominal Nodes: No retroperitoneal or mesenteric adenopathy by size criteria. Vessels: Aorta and inferior vena cava are normal in size. PELVIS: Pelvic Organs: Unremarkable. Bladder: Unremarkable. Pelvic Nodes: No enlarged lymph nodes. Miscellaneous: No inguinal hernias are seen. Bones: Unremarkable. IMPRESSION: 1. Mild thickening of cecum and terminal ileum. Etiology may be infection or inflammatory bowel disease. 2. Nonvisualization of appendix. Recommend clinical correlation for appendectomy. 3. Hepatic steatosis. Dictated by: Temitope Amaral M.D. on 07/11/2022 at 12:52 Approved by: Temitope Amaral M.D. on 07/11/2022 at 12:56
== END ==
PROVIDERS: PCP Registered Nurse Diabetes Educator; Referring Provider Family Medicine; Visit Provider Family Medicine
DX: R10.13 Epigastric pain (principal); R10.11 Right upper quadrant pain; R11.2 Nausea with vomiting, unspecified; T36.7X5A Adverse effect of antifungal antibiotics, systemically used, initial encounter; K76.0 Fatty (change of) liver, not elsewhere classified
CPT/HCPCS: 74177; Q9967

== ENCOUNTER 2022-07-14 08:50 | Emergency (ER) | payer OTHER, MEDICAID, SELFPAY ==
[2022-07-14 08:55] VITALS: BP 168/91; PULSE 83; RESP 18; TEMP 36.9; O2SAT 100; BMI 51.5
--- NOTE | 2022-07-14 09:28 | ED_ITS ---
HPI - General Adult General Chief complaint: Abdominal Pain Stated complaint: gallbladder issues severe pain U.R.Abd Time Seen by Provider: 07/14/22 09:21 Source: patient Mode of arrival: Ambulatory Limitations: no limitations History of Present Illness HPI narrative: Patient is a 27-year-old female who is here for evaluation of right upper quadrant/right flank pain. She states she had been dealing with this discomfort for the past several months. There are times when it was worse than others and last evening the symptoms seemed to have gotten worse. She is had fairly extensive workup of this right upper quadrant pain. Her doctor thinks that maybe it was her gallbladder that is causing the discomfort. She is had an ultrasound and a HIDA scan. All this have not revealed specific acute cholecystitis. She is a follow-up with General surgery later this week. She states the pain does get worse when she eats. She is having some nausea but no vomiting. No change in stools. No urinary symptoms. No skin changes. Related Data Home Medications Medication Instructions Recorded Confirmed sertraline PO 03/04/22 07/07/22 albuterol sulfate 90 mcg/actuation 2 puff inhalation Q4HP PRN 04/15/22 07/07/22 aerosol inhaler (Ventolin HFA) shortness of breath or wheezing fluticasone propionate 50 2 spray intranasal DAILY PRN 04/15/22 07/07/22 mcg/actuation nasal spray,suspension (Flonase Allergy Relief) metronidazole 0.75 % (37.5 mg/5 g vaginal 07/07/22 07/07/22 gram) vaginal gel Previous Rx's Medication Instructions Recorded albuterol sulfate 2.5 mg/3 mL 2.5 mg (3 mL) inhalation Q4-6H PRN 06/05/21 (0.083 %) solution for nebulization shortness of breath or wheezing #90 mL nebulizers #1 ea 06/05/21 rizatriptan 5 mg tablet See Rx Instructions PO .COMPLEX 03/17/22 #30 tabs ondansetron 4 mg disintegrating 4 mg PO Q6-8H PRN nausea and 05/16/22 tablet vomiting #30 tabs pantoprazole 40 mg tablet,delayed 40 mg PO DAILY #30 tabs 06/25/22 release promethazine 25 mg tablet 25 mg PO QID PRN nausea and 07/14/22 vomiting #14 tabs Allergies Allergy/AdvReac Type Severity Reaction Status Date / Time No Known Drug Allergies Allergy Verified 07/14/22 09:32 Review of Systems Review of Systems ROS Unobtainable: All systems reviewed & are unremarkable except as noted in HPI and below Patient History Medical History Anxiety Cervicitis Common migraine Depression (2013) Gastroesophageal reflux disease Headache, chronic daily Hepatic steatosis IBS (irritable bowel syndrome) Morbid obesity Surgical History History of appendectomy Status post delivery (11/18/16) Social History household members: children Smoking Status: Never smoker alcohol intake: current Smoking Status: Never smoker alcohol intake frequency: holidays/special occasions only Substance Use Type: marijuana Exam Initial Vital Signs Initial Vital Signs: Vital Signs Temperature 98.5 F 07/14/22 08:55 Pulse Rate 83 07/14/22 08:55 Respiratory Rate 18 07/14/22 08:55 Blood Pressure 168/91 H 07/14/22 08:55 Pulse Oximetry 100 07/14/22 08:55 Oxygen Delivery Method Room Air 07/14/22 08:55 HENMT Head: normal to inspection and normocephalic Resp Effort & Inspection: normal respiratory effort Auscultation: clear to auscultation bilaterally Cardio Rate: regular rate Rhythm: regular rhythm GI Inspection: normal to inspection and non-distended Palpation: soft and tender (Right flank, negative Merida sign) Back/Spine/Pelvis Other: Mild right CVA tenderness Skin General: no rashes or lesions noted Neuro General: patient alert, patient awake and moves all extremities Extrem General: normal to inspection and capillary refill normal Course Orders Ordered: ED Orders 07/14/22 09:21 Complete Blood Count AUTO DIFF Stat Comprehensive Metabolic Panel Stat Lipase Stat 07/14/22 09:30 US abdomen limited Stat Discontinued Medications Ketorolac Tromethamine (Ketorolac 30 Mg/Ml Vial) 30 mg IV NOW ONE Stop: 07/14/22 09:31 Last Admin: 07/14/22 09:36 Dose: 30 mg Documented By: AMU Ondansetron HCl (Ondansetron 4 Mg/2 Ml Inj) 4 mg IV NOW ONE Stop: 07/14/22 09:31 Last Admin: 07/14/22 09:36 Dose: 4 mg Documented By: AMU Vital Signs Vital signs: Vital Signs - 8 hr 07/14/22 08:55 Temperature 98.5 F Pulse Rate 83 Respiratory Rate 18 Blood Pressure 168/91 H Pulse Oximetry 100 Oxygen Delivery Method Room Air Medical Decision Making Medical Records Medical records reviewed: Yes I reviewed the patient's medical records. Lab Data Lab results reviewed: Yes I reviewed the patient's lab results. 07/14/22 09:21 07/14/22 09:21 Labs: Lab Results 07/14/22 07/14/22 Range/Units 09:21 09:21 WBC 8.3 (4.5-11.0) X10^3/uL RBC 4.70 (4.0-5.2) X10^6/uL Hgb 13.4 (12.0-16.0) g/dL Hct 39.0 (36-46) % MCV 83.1 (80-100) fL MCH 28.4 (26-34) PG MCHC 34.2 (30-36) % RDW 13.2 (11.6-14.8) % Plt Count 277 (150-400) X10^3/uL Neut % (Auto) 61.3 (50-75) % Lymph % (Auto) 30.4 (25-40) % [place] % (Auto) 6.6 (3-14) % Eos % (Auto) 1.2 L (2-4) % Baso % (Auto) 0.5 (0-2) % Neut # (Auto) 5100 (9527-3577) /uL Lymph # (Auto) 2500 (9741-9472) /uL [place] # (Auto) 500 (0-900) /uL Eos # (Auto) 100 (0-450) /uL Baso # (Auto) 0 (0-100) /uL Sodium 135 L (137-145) mmol/L Potassium 4.1 (3.4-5.1) mmol/L Chloride 101 (98-107) mmol/L Carbon Dioxide 27 (22-32) mmol/L BUN 6 L (7-17) mg/dL Creatinine 0.74 (0.52-1.04) mg/dL Estimated GFR > 60 (>60) mL/min BUN/Creatinine Ratio 8.1 (6-22) Glucose 100 (70-100) mg/dL Calcium 9.2 (8.4-10.2) mg/dL Total Bilirubin 0.5 (0.2-1.3) mg/dL AST 25 (14-36) IU/L ALT 32 (<35) IU/L Alkaline Phosphatase 75 (38-126) U/L Total Protein 7.6 (6.3-8.2) g/dL Albumin 4.0 (3.5-5.0) g/dL Globulin 3.6 (1.7-4.1) g/dL Albumin/Globulin Ratio 1.1 (1.0-2.8) Lipase 74 (23-300) U/L Point of Care Testing Test Results Negative Urine Dip Bedside Urine Glucose Negative Bedside Urine Bilirubin - Negative Bedside Urine Ketone - Negative Urine Specific [place] 1.010 Bedside Urine Occult Blood - Negative Bedside Urine pH 7.0 Bedside Urine Protein - Negative Bedside Urine Urobilinogen - Negative Bedside Urine Nitrite - Negative Bedside Urine Leukocytes - Negative Esterase Point of care testing: Point of Care Testing Test Results Negative Urine Dip Bedside Urine Glucose Negative Bedside Urine Bilirubin - Negative Bedside Urine Ketone - Negative Urine Specific [place] 1.010 Bedside Urine Occult Blood - Negative Bedside Urine pH 7.0 Bedside Urine Protein - Negative Bedside Urine Urobilinogen - Negative Bedside Urine Nitrite - Negative Bedside Urine Leukocytes - Negative Esterase Imaging Data US - abdomen: Radiologist's Impression: PROCEDURE: US ABDOMEN LIMITED ? INDICATIONS:? RUQ PAIN ? TECHNIQUE:? Real-time focused scanning was performed of the abdomen, with image documentation.? ? COMPARISON:? [facility], CT, CT ABDOMEN PELVIS W CON, 07/11/2022, 11:58.? [facility], [place], US ABDOMEN LIMITED, 05/19/2022, 9:28. ? FINDINGS:? There is increased echogenicity present in the liver, which is greater than what would be expected based on the CT, where there is mild diffuse hepatic steatosis.? No focal liver mass. ? Gallbladder is unremarkable without stones or wall thickening.? No pain on examination. ? No dilated bile ducts.? Common hepatic duct measures 4.5 mm. ? Pancreas is suboptimally visualized secondary to overlying bowel gas. ? IMPRESSION:? ? 1. Diffuse hepatic steatosis, which is demonstrated to only be mild. ? 2. No gallstones MDM Narrative Medical decision making narrative: Patient does have a benign abdominal exam. She has a follow-up with General surgery on this week to discuss her potential gallbladder issues. Her workup here in the emergency department today his unremarkable. Her LFTs and lipase are unremarkable. Her right upper quadrant ultrasound is negative. I do have low suspicion that this is a kidney stone just based on her presentation. She has had her appendix removed. I have low suspicion for bowel obstruction. Her test is negative and her urinalysis is negative which makes pyelonephritis unlikely. I do feel we should hold on a CT scan today is my suspicion is low for an acute intra-abdominal surgical issue. She does have nausea medication at home. She would like to take Tylenol at home for pain. Will have her keep her follow-up appointment later this week. She was given return precautions. She expressed understanding and agreement. Discharge Plan Departure Patient Disposition: Home Clinical Impression: Abdominal pain Instructions: DI for Abdominal Pain-Adult Activity Restrictions/Additional Instructions: I do recommend that you keep your scheduled appointment with General surgery later this week. Continue to take all of your medications as directed. Return to the emergency department for new or worsening symptoms. Prescriptions: New promethazine 25 mg tablet 25 mg PO QID PRN (Reason: nausea and vomiting) Qty: 14 0RF No Action rizatriptan 5 mg tablet See Rx Instructions PO .COMPLEX Qty: 30 5RF Rx Instructions: take 1 tablet at onset of headache; if no relief, may repeat 1 tablet after at least 2 hrs PO ondansetron 4 mg tablet,disintegrating 4 mg PO Q6-8H PRN (Reason: nausea and vomiting) Qty: 30 3RF pantoprazole 40 mg tablet,delayed release (DR/EC) 40 mg PO DAILY Qty: 30 0RF albuterol sulfate 2.5 mg /3 mL (0.083 %) solution for nebulization 2.5 mg inhalation Q4-6H PRN (Reason: shortness of breath or wheezing) Qty: 90 0RF (DME) nebulizers Misc See Rx Instructions .Route Qty: 1 0RF Rx Instructions: USE TO ADMINISTER ALBUTEROL SOLUTION Q4-6H PRN sertraline PO metronidazole 0.75 % (37.5mg/5 gram) gel vaginal albuterol sulfate [Ventolin HFA] 90 mcg/actuation HFA aerosol inhaler 2 puff inhalation Q4HP PRN (Reason: shortness of breath or wheezing) fluticasone propionate [Flonase Allergy Relief] 50 mcg/actuation spray,suspension 2 spray intranasal DAILY PRN Rx Instructions: administer into each nostril Referrals: Bill Ansari ARNP [Primary Care Provider] - Stand Alone Forms: Patient Portal/API
--- NOTE | 2022-07-14 09:30 | DI.US.S_ITS ---
PROCEDURE: US ABDOMEN LIMITED INDICATIONS: RUQ PAIN TECHNIQUE: Real-time focused scanning was performed of the abdomen, with image documentation. COMPARISON: [facility], CT, CT ABDOMEN PELVIS W CON, 07/11/2022, 11:58. [facility], [place], US ABDOMEN LIMITED, 05/19/2022, 9:28. FINDINGS: There is increased echogenicity present in the liver, which is greater than what would be expected based on the CT, where there is mild diffuse hepatic steatosis. No focal liver mass. Gallbladder is unremarkable without stones or wall thickening. No pain on examination. No dilated bile ducts. Common hepatic duct measures 4.5 mm. Pancreas is suboptimally visualized secondary to overlying bowel gas. IMPRESSION: 1. Diffuse hepatic steatosis, which is demonstrated to only be mild. 2. No gallstones Dictated by: Nuno White M.D. on 07/14/2022 at 10:15 Approved by: Nuno White M.D. on 07/14/2022 at 10:18
[2022-07-14 09:36] LABS: Add Manual Diff / Slide Review NO; Basophils Absolute Auto 0 /uL (0-100); Basophils Percent Auto 0.5 % (0-2); Eosinophils Absolute Auto 100 /uL (0-450); Eosinophils Percent Auto 1.2 % (2-4); Hemoglobin 13.4 g/dL (12.0-16.0); Lymphocytes Absolute Auto 2500 /uL (1100-4500); Lymphocytes Percent Auto 30.4 % (25-40); Mean Corpuscular HGB Conc 34.2 % (30-36); Mean Corpuscular Hemoglobin 28.4 PG (26-34); Mean Corpuscular Volume 83.1 fL (80-100); Monocytes Absolute Auto 500 /uL (0-900); Monocytes Percent Auto 6.6 % (3-14); Neutrophils Absolute Auto 5100 /uL (1500-7000); Neutrophils Percent Auto 61.3 % (50-75); Platelet Count 277 X10^3/uL (150-400); Red Cell Distribution Width 13.2 % (11.6-14.8); White Blood Cell Count 8.3 X10^3/uL (4.5-11.0)
[2022-07-14] MEDS: KETOROLAC 30 MG/ML VIAL IV (09:36)
[2022-07-14] MEDS: ONDANSETRON 4 MG/2 ML INJ IV (09:36)
[2022-07-14 09:48] LABS: Alanine Aminotransferase 32 IU/L (<35); Albumin Globulin Ratio 1.1 (1.0-2.8); Alkaline Phosphatase 75 U/L (38-126); Aspartate Aminotransferase 25 IU/L (14-36); BUN Creatinine Ratio 8.1 (6-22); Bilirubin Total 0.5 mg/dL (0.2-1.3); Blood Urea Nitrogen 6 mg/dL (7-17); Calcium 9.2 mg/dL (8.4-10.2); Carbon Dioxide 27 mmol/L (22-32); Chloride 101 mmol/L (98-107); Estimated Glomerular Filt Rate > 60 mL/min (>60); Globulin 3.6 g/dL (1.7-4.1); Glucose 100 mg/dL (70-100); HEMOLYSIS < 15 (0-50); Lipase 74 U/L (23-300); Potassium 4.1 mmol/L (3.4-5.1); Sodium 135 mmol/L (137-145); Total Protein 7.6 g/dL (6.3-8.2)
[2022-07-14 10:33] VITALS: PULSE 74; O2SAT 100
[2022-07-14 11:00] VITALS: PULSE 65; O2SAT 100
== END 2022-07-14 11:23 | disposition home or self-care (01) ==
PROVIDERS: Emergency Provider Emergency Medicine; PCP Registered Nurse Diabetes Educator
DX: R10.11 Right upper quadrant pain (principal)
CPT/HCPCS: 36415; 76705; 80053; 81003; 81025; 83690; 85025; 96374; 96375; 99284; J1885; J2405

== ENCOUNTER → 2022-08-03 15:22 | Outpatient (CLI) | payer OTHER, MEDICAID, SELFPAY | PROVIDERS: PCP Registered Nurse Diabetes Educator; Visit Provider Nurse Practitioner Family | DX: J02.9 Acute pharyngitis, unspecified (principal) | CPT/HCPCS: 87070; 87077; 87185; 87880 ==

== ENCOUNTER → 2022-08-20 18:31 | Outpatient (CLI) | payer OTHER, MEDICAID, SELFPAY ==
--- NOTE | 2022-08-20 18:35 | DI.RAD.S_ITS ---
PROCEDURE: XR CHEST 2V INDICATIONS: Cough TECHNIQUE: 2 views of the chest were acquired. COMPARISON: [facility], , CHEST 2 VIEW, 01/17/2015, 11:46. FINDINGS: Surgical changes and devices: None. Lungs and pleura: Lungs are clear. No pleural effusions or pneumothorax. Mediastinum: Mediastinal contours are normal. Heart size is normal. Bones and chest wall: No suspicious bony abnormalities. Soft tissues appear unremarkable. IMPRESSION: No acute cardiopulmonary abnormalities or focal airspace disease. Dictated by: Parker Pepper M.D. on 08/21/2022 at 7:39 Approved by: Parker Pepper M.D. on 08/21/2022 at 7:40
== END ==
PROVIDERS: PCP Registered Nurse Diabetes Educator; Referring Provider Nurse Practitioner Family; Visit Provider Nurse Practitioner Family
DX: R05.9 Cough, unspecified (principal)
CPT/HCPCS: 71046

== ENCOUNTER → 2022-09-29 07:53 | Outpatient (CLI) | payer OTHER, MEDICAID, SELFPAY ==
--- NOTE | 2022-09-29 07:54 | DI.NM.S_ITS ---
PROCEDURE: NM EXERCISE TREADMILL NON NUC COMPARISON: None INDICATIONS: Chest pain with SOB since surgery FINDINGS: Rest ECG sinus rhythm. Raheel protocol 6:00, maximum heart rate 173 bpm (89% peak predicted), maximum blood pressure 195/85 post exercise however blood pressure unable to be obtained at peak exercise, 7.0 METS, TARI +41%. Exercise ECG sinus tachycardia, no ST segment changes, rare PVCs in recovery. The patient complained of sharp 2 out of 10 chest pain 5 minutes into exercise that did not worsen over the next minute. IMPRESSION: Low risk study. No evidence of exercise-induced ischemia or arrhythmia. Rare PVCs noted in recovery. Possible hypertensive response to exercise. Reduced exercise capacity. Atypical exercise-induced chest discomfort. Dictated by: Anna Hannah D.O. on 09/29/2022 at 16:53 Approved by: Anna Hannah D.O. on 09/29/2022 at 16:57
== END ==
PROVIDERS: PCP Registered Nurse Diabetes Educator; Referring Provider Nurse Practitioner Family; Visit Provider Nurse Practitioner Family
DX: R07.89 Other chest pain (principal); R06.02 Shortness of breath
CPT/HCPCS: 93017

== ENCOUNTER → 2022-10-02 08:05 | Outpatient (CLI) | payer OTHER, MEDICAID, SELFPAY ==
--- NOTE | 2022-10-02 08:06 | DI.ECHO.S_ITS ---
[facility] +---------+ : : [address] : : : : [id number] : : : : Phone: [phone]+ Echocardiogram Report + + :Name: SHERRI MYERS Study Date: 10/02/2022 Height: 64 in : :[facility] ReadingLocation: Weight: 305 lb : : Gender: Female BSA: 2.3 m2 : :: 1995 Age: 27 yrs BP: 145/92 mmHg: :Reason For Study: Chest Pain : :Ordering Physician: Luda, : :Gisella Performed By: Christine Espinosa : :Referring: GISELLA WILLS : + + Interpretation Summary 1) Normal left ventricular thickness, size, and systolic function (EF 55-60%). 2) Normal right ventricular size and function. 3) No significant valvular abnormalities. 4) No prior Echo available for comparison. Procedure: A two-dimensional transthoracic echocardiogram with color flow and Doppler was performed. The study quality was technically adequate. There is no prior echocardiogram noted for this patient. The patient was in normal sinus rhythm during the exam. Left Ventricle: The left ventricle is normal in size and wall thickness. The ejection fraction is estimated to be 55-60%. There are no obvious focal wall motion abnormalities noted but poor endocardial definition reduces the sensitivity for the detection of such. Diastolic parameters suggest probable normal left ventricular diastolic function and normal filling pressures. Right Ventricle: The right ventricle is normal size. The right ventricular systolic function is normal. Atria: The left atrial size is normal. Right atrial size is normal. There is no Doppler evidence for an interatrial shunt. Mitral Valve: The mitral valve is normal. There is no mitral valve stenosis. There is no mitral regurgitation noted. Aortic Valve: The aortic valve is not well visualized but is presumably normal. There is no aortic valve stenosis. There is trace aortic regurgitation. Tricuspid Valve: The tricuspid valve is normal. There is no tricuspid stenosis. There is trace tricuspid regurgitation. Pulmonary artery pressures cannot be estimated because of the lack of a measurable TR jet velocity. Pulmonic Valve: The pulmonic valve leaflets are thin and pliable; valve motion is normal. There is no pulmonic valvular stenosis. There is trace pulmonic regurgitation. Great Vessels: The aortic root is normal size. The ascending aorta is normal in size. The pulmonary artery is normal size. The IVC is of normal diameter and collapses greater than 50% with a sniff. This suggests a low right atrial pressure of 3 mm Hg. Pericardium/ Pleura There is no pericardial effusion. There is no pleural effusion. MMode/2D Measurements & Calculations LVIDd: 5.0 cm LVOT diam: 2.0 cm LVIDs: 3.2 cm Ao root diam: 2.7 cm FS: 36.0 % asc Aorta Diam: 2.8 cm IVSd: 1.0 cm LVPWd: 1.0 cm LV olea. diameter/BSA (cm/m^2): 2.1 LV sys. diameter/BSA (cm/m^2): 1.4 LA A2 area: 15.9 cm2 RA long axis: 5.0 cm LA A4 area: 16.1 cm2 RA area: 10.5 cm2 LA length (vol): 4.9 cm RA vol: 19.0 ml LA vol: 44.8 ml RA : 8.1 ml/m2 LA vol index: 19.1 ml/m2 RVD1 (basal): 3.2 cm LVLs ap4: 6.7 cm LVLd ap2: 7.9 cm TAPSE_phl: 1.8 cm LVLs ap2: 6.5 cm Doppler Measurements & Calculations Ao V2 max: 130.0 cm/sec LVOT Max Kaleb: 99.9 cm/sec Ao V2 mean: 87.4 cm/sec LV V1 max P.0 mmHg Ao max P.0 mmHg LV V1 VTI: 21.9 cm Ao mean P.0 mmHg CHINEDU(I,D): 2.4 cm2 Ao V2 VTI: 29.0 cm CHINEDU(V,D): 2.4 cm2 sev ratio: 0.76 CHINEDU indexed to BSA (cm^2/m^2): 1.0 MV E max kaleb: 85.3 cm/sec PA V2 max: 111.0 cm/sec MV A max kaleb: 59.1 cm/sec PA V2 mean: 84.3 cm/sec MV E/A: 1.4 PA mean P.0 mmHg Med Peak E' Kaleb: 9.4 cm/sec PA pr(Accel): 12.4 mmHg E/E' med: 9.1 Lat Peak E' Kaleb: 16.6 cm/sec E/E' lat: 5.1 E/e' average: 7.1 MV dec time: 0.19 sec SV(LVOT): 68.8 ml AV VR_phl: 0.77 CHINEDU(VTI)/BSA_phl: 1.0 MV P1/2t-pr_phl: 57.0 msec Reading Physician:10:09 AM
== END ==
PROVIDERS: PCP Registered Nurse Diabetes Educator; Referring Provider Nurse Practitioner Family; Visit Provider Nurse Practitioner Family
DX: R07.9 Chest pain, unspecified (principal)
CPT/HCPCS: 93306

== ENCOUNTER → 2022-11-06 07:57 | Outpatient (CLI) | payer OTHER, MEDICAID, SELFPAY | PROVIDERS: PCP Registered Nurse Diabetes Educator; Referring Provider Nurse Practitioner Family; Visit Provider Nurse Practitioner Family | DX: R07.9 Chest pain, unspecified (principal) | CPT/HCPCS: 93242 ==

== ENCOUNTER → 2022-12-10 09:18 | Outpatient (CLI) | payer OTHER, SELFPAY ==
[2022-12-10 10:34] LABS: D Dimer 309 ng/ml (<500)
[2022-12-10 10:50] LABS: Alanine Aminotransferase 25 IU/L (<35); Albumin 4.1 g/dL (3.5-5.0); Albumin Globulin Ratio 1.4 (1.0-2.8); Alkaline Phosphatase 84 U/L (38-126); Aspartate Aminotransferase 23 IU/L (14-36); BUN Creatinine Ratio 14.7 (6-22); Bilirubin Total 0.3 mg/dL (0.2-1.3); Blood Urea Nitrogen 10 mg/dL (7-17); Calcium 9.1 mg/dL (8.4-10.2); Carbon Dioxide 25 mmol/L (22-32); Chloride 101 mmol/L (98-107); Estimated Glomerular Filt Rate > 60 mL/min (>60); Globulin 2.9 g/dL (1.7-4.1); Glucose 104 mg/dL (70-100); HEMOLYSIS < 15 (0-50); NT-proBNP (BNP-Adult 18+) 28 pg/mL (<125); Potassium 4.2 mmol/L (3.4-5.1); Sodium 134 mmol/L (137-145)
== END ==
PROVIDERS: PCP Registered Nurse Diabetes Educator; Referring Provider Physician Assistant; Visit Provider Physician Assistant
DX: M79.89 Other specified soft tissue disorders (principal)
CPT/HCPCS: 36415; 80053; 83880; 85379

== ENCOUNTER → 2022-12-18 10:38 | Outpatient (CLI) | payer OTHER, SELFPAY ==
[2022-12-18 11:51] LABS: BUN Creatinine Ratio 15.7 (6-22); Blood Urea Nitrogen 11 mg/dL (7-17); Calcium 10.1 mg/dL (8.4-10.2); Carbon Dioxide 30 mmol/L (22-32); Chloride 98 mmol/L (98-107); Estimated Glomerular Filt Rate > 60 mL/min (>60); Glucose 107 mg/dL (70-100); HEMOLYSIS < 15 (0-50); Sodium 136 mmol/L (137-145)
[2022-12-18 16:02] LABS: Sodium Urine Random 112 mmol/L (30-90)
[2022-12-19 11:30] LABS: Osmolality Urine 553 mOsmol/kg (.)
[2022-12-19 11:30] LABS: Osmolality, Serum 283 mOsmol/kg (275-295)
== END ==
PROVIDERS: PCP Registered Nurse Diabetes Educator; Referring Provider Physician Assistant; Visit Provider Physician Assistant
DX: I10 Essential (primary) hypertension (principal); R07.9 Chest pain, unspecified
CPT/HCPCS: 36415; 80048; 83930; 83935; 84300

== ENCOUNTER 2022-12-30 08:48 | Emergency (ER) | payer OTHER, SELFPAY ==
--- NOTE | 2022-12-30 08:50 | DI.RAD.S_ITS ---
PROCEDURE: XR CHEST 1V INDICATIONS: chest pain TECHNIQUE: One view of the chest was acquired. COMPARISON: [facility], [place], XR CHEST 2V, 08/20/2022, 18:33. FINDINGS: Surgical changes and devices: None. Lungs and pleura: Lungs are clear. No pleural effusions or pneumothorax. Mediastinum: Mediastinal contours appear normal. Heart size is normal. Bones and chest wall: No suspicious bony lesions. Overlying soft tissues appear unremarkable. IMPRESSION: Portable chest within normal limits for age. Dictated by: Parker Pepper M.D. on 12/30/2022 at 10:06 Approved by: Parker Pepper M.D. on 12/30/2022 at 10:08
[2022-12-30 08:56] VITALS: BP 172/95; PULSE 100; RESP 20; TEMP 36.7; O2SAT 98; BMI 51.5
--- NOTE | 2022-12-30 09:00 | ED.GENADULT ---
HPI - General Adult General Chief complaint: Chest Pain Stated complaint: symptoms of heart attack Time Seen by Provider: 12/30/22 08:49 Source: patient Mode of arrival: Ambulatory Limitations: no limitations History of Present Illness HPI narrative: Patient is a 27-year-old female who is here for evaluation of occasional left-sided chest discomfort and left arm pain. She states that the symptoms have been going on for the past several months. They started after she had her gallbladder removed. She has had Holter monitor in the past but that was prior to the onset of her chest discomfort. She is not been specifically evaluated for this chest discomfort. She stated that she had the discomfort last evening and in route here to the emergency department. She states it is not worse with palpation or movement or breathing. She also has had some lightheadedness. Related Data Home Medications Medication Instructions Recorded Confirmed albuterol sulfate 90 mcg/actuation 2 puff inhalation Q4HP PRN 04/15/22 12/22/22 aerosol inhaler (Ventolin HFA) shortness of breath or wheezing fluticasone propionate 50 2 spray intranasal DAILY PRN 04/15/22 12/22/22 mcg/actuation nasal spray,suspension (Flonase Allergy Relief) Previous Rx's Medication Instructions Recorded albuterol sulfate 2.5 mg/3 mL 2.5 mg (3 mL) inhalation Q4-6H PRN 06/05/21 (0.083 %) solution for nebulization shortness of breath or wheezing #90 mL nebulizers #1 ea 06/05/21 rizatriptan 5 mg tablet See Rx Instructions PO .COMPLEX 03/17/22 #30 tabs hydrochlorothiazide 12.5 mg tablet 12.5 mg PO DAILY #30 tabs 12/10/22 semaglutide 0.25 mg or 0.5 mg (2 0.25 mg (0.368 mL) SUBCUT QWEEK #3 12/10/22 mg/3 mL) subcutaneous pen injector mL (Ozempic) naproxen 500 mg tablet 500 mg PO BID PRN pain #30 tabs 12/18/22 fluoxetine 20 mg capsule 60 mg PO DAILY #270 caps 12/22/22 Allergies Allergy/AdvReac Type Severity Reaction Status Date / Time No Known Drug Allergies Allergy Verified 12/22/22 12:12 Review of Systems Constitutional Constitutional: Reports system reviewed and no additional complaints, except as documented Cardiovascular Cardiovascular: Reports system reviewed and no additional complaints, except as documented Respiratory Respiratory: Reports system reviewed and no additional complaints, except as documented Gastrointestinal Gastrointestinal: Reports system reviewed and no additional complaints, except as documented Genitourinary Genitourinary: Reports system reviewed and no additional complaints, except as documented Musculoskeletal Musculoskeletal: Reports system reviewed and no additional complaints, except as documented Integumentary/Breasts Skin/Breast: Reports system reviewed and no additional complaints, except as documented Hematologic/Lymphatic On Anticoagulants: No Patient History Medical History Anxiety Cervicitis Common migraine Depression (2013) Gastroesophageal reflux disease Headache, chronic daily Hepatic steatosis IBS (irritable bowel syndrome) Morbid obesity Surgical History History of appendectomy Status post delivery (11/18/16) Social History marital status: unmarried,single household members: children lives independently: Yes occupational status: employed Smoking Status: Never smoker alcohol intake: former substance use type: does not use Smoking Status: Never smoker alcohol intake frequency: holidays/special occasions only Substance Use Type: marijuana Exam Initial Vital Signs Initial Vital Signs: Vital Signs Temperature 98.1 F 12/30/22 08:56 Pulse Rate 100 H 12/30/22 08:56 Respiratory Rate 20 12/30/22 08:56 Blood Pressure 172/95 H 12/30/22 08:56 Pulse Oximetry 98 12/30/22 08:56 Oxygen Delivery Method Room Air 12/30/22 08:56 Const General: cooperative, comfortable and No ill appearing HENMT Head: normal to inspection Resp Effort & Inspection: normal respiratory effort Auscultation: clear to auscultation bilaterally Cardio Rate: regular rate Rhythm: regular rhythm GI Inspection: normal to inspection Neuro General: patient alert, patient awake and moves all extremities Extrem General: capillary refill normal Scores HEART Score Heart Score history: Moderately Suspicious Heart Score EKG: Normal Heart Score Age: < 45 years old Heart Score risk factors: > 3 risk factors or hx of atherosclerotic disease Heart Score troponin: < or = to normal limit Heart Score Total: 3 Course Orders Ordered: ED Orders 12/30/22 08:50 XR chest 1V Stat 12/30/22 08:58 EKG-12 Lead Stat 12/30/22 09:11 Complete Blood Count AUTO DIFF Stat Comprehensive Metabolic Panel Stat Lipase Stat Troponin & CK Cardiac Panel Stat Vital Signs Vital signs: Vital Signs - 8 hr 12/30/22 08:56 Temperature 98.1 F Pulse Rate 100 H Respiratory Rate 20 Blood Pressure 172/95 H Pulse Oximetry 98 Oxygen Delivery Method Room Air Medical Decision Making Lab Data Lab results reviewed: Yes I reviewed the patient's lab results. 12/30/22 09:11 12/30/22 09:11 Labs: Lab Results 12/30/22 12/30/22 Range/Units 09:11 09:11 WBC 9.4 (4.5-11.0) X10^3/uL RBC 4.74 (4.0-5.2) X10^6/uL Hgb 13.5 (12.0-16.0) g/dL Hct 38.8 (36-46) % MCV 81.9 (80-100) fL MCH 28.5 (26-34) PG MCHC 34.7 (30-36) % RDW 13.5 (11.6-14.8) % Plt Count 301 (150-400) X10^3/uL Neut % (Auto) 62.2 (50-75) % Lymph % (Auto) 29.4 (25-40) % [place] % (Auto) 6.7 (3-14) % Eos % (Auto) 0.9 L (2-4) % Baso % (Auto) 0.8 (0-2) % Neut # (Auto) 5800 (6850-4827) /uL Lymph # (Auto) 2800 (7931-5477) /uL [place] # (Auto) 600 (0-900) /uL Eos # (Auto) 100 (0-450) /uL Baso # (Auto) 100 (0-100) /uL Sodium 135 L (137-145) mmol/L Potassium 4.1 (3.4-5.1) mmol/L Chloride 99 (98-107) mmol/L Carbon Dioxide 29 (22-32) mmol/L BUN 13 (7-17) mg/dL Creatinine 0.79 (0.52-1.04) mg/dL Estimated GFR > 60 (>60) mL/min BUN/Creatinine Ratio 16.5 (6-22) Glucose 106 H (70-100) mg/dL Calcium 9.6 (8.4-10.2) mg/dL Total Bilirubin 0.5 (0.2-1.3) mg/dL AST 21 (14-36) IU/L ALT 25 (<35) IU/L Alkaline Phosphatase 82 (38-126) U/L Total Creatine Kinase 106 (30-135) U/L Troponin I < 0.012 (0.01-0.034) ng/mL Total Protein 7.8 (6.3-8.2) g/dL Albumin 4.3 (3.5-5.0) g/dL Globulin 3.5 (1.7-4.1) g/dL Albumin/Globulin Ratio 1.2 (1.0-2.8) Lipase 77 (23-300) U/L Imaging Data Chest x-ray: Radiologist's Impression: PROCEDURE:? XR CHEST 1V ? INDICATIONS:? chest pain ? TECHNIQUE:? One view of the chest was acquired.? ? COMPARISON:? [facility], , XR CHEST 2V, 08/20/2022, 18:33. ? FINDINGS:? ? Surgical changes and devices:? None.? ? Lungs and pleura:? Lungs are clear.? No pleural effusions or pneumothorax.? ? Mediastinum:? Mediastinal contours appear normal.? Heart size is normal.? ? Bones and chest wall:? No suspicious bony lesions.? Overlying soft tissues appear unremarkable.? ? ? IMPRESSION:? Portable chest within normal limits for age. ECG Data Attestation: I personally reviewed and interpreted this ECG as follows: Interpretation: Sinus rhythm Ventricular rate 99 Normal axis Normal QRS axis normal QTC No ST T wave changes MDM Narrative Medical decision making narrative: Patient does have a low risk heart score. She has had a stress test recently. She is scheduled to see Cardiology on . Troponin is negative. Chest x-ray is unremarkable. EKG is unremarkable. Afebrile. No indication for antibiotics. I did discuss this with the patient. She understands lack of a definitive diagnosis. We did discuss that she is low risk for ACS. Will have her keep her appointment with Cardiology on . No indication to change any of her medications. She was given return precautions. Discharge Plan Departure Patient Disposition: Home Clinical Impression: Atypical chest pain Instructions: DI for Atypical Chest Pain Activity Restrictions/Additional Instructions: Continue to take all of your medications as directed. Keep your appointment that is scheduled for this week with Cardiology. Return to the emergency department for new or worsening symptoms. Prescriptions: No Action rizatriptan 5 mg tablet See Rx Instructions PO .COMPLEX Qty: 30 5RF Rx Instructions: take 1 tablet at onset of headache; if no relief, may repeat 1 tablet after at least 2 hrs PO albuterol sulfate 2.5 mg /3 mL (0.083 %) solution for nebulization 2.5 mg inhalation Q4-6H PRN (Reason: shortness of breath or wheezing) Qty: 90 0RF (DME) nebulizers Misc See Rx Instructions .Route Qty: 1 0RF Rx Instructions: USE TO ADMINISTER ALBUTEROL SOLUTION Q4-6H PRN fluoxetine 20 mg capsule 60 mg PO DAILY Qty: 270 3RF naproxen 500 mg tablet 500 mg PO BID PRN (Reason: pain) Qty: 30 0RF albuterol sulfate [Ventolin HFA] 90 mcg/actuation HFA aerosol inhaler 2 puff inhalation Q4HP PRN (Reason: shortness of breath or wheezing) fluticasone propionate [Flonase Allergy Relief] 50 mcg/actuation spray,suspension 2 spray intranasal DAILY PRN Rx Instructions: administer into each nostril Ozempic 0.25 mg or 0.5 mg (2 mg/3 mL) pen injector 0.25 mg SUBCUT QWEEK Qty: 3 3RF Rx Instructions: for 4 weeks; then increase to 0.5 mg every week hydrochlorothiazide 12.5 mg tablet 12.5 mg PO DAILY Qty: 30 2RF Referrals: Bill Ansari ARNP [Primary Care Provider] - Stand Alone Forms: Patient Portal/API
[2022-12-30 09:24] LABS: Add Manual Diff / Slide Review NO; Basophils Absolute Auto 100 /uL (0-100); Basophils Percent Auto 0.8 % (0-2); Eosinophils Absolute Auto 100 /uL (0-450); Eosinophils Percent Auto 0.9 % (2-4); Hematocrit 38.8 % (36-46); Hemoglobin 13.5 g/dL (12.0-16.0); Lymphocytes Absolute Auto 2800 /uL (1100-4500); Lymphocytes Percent Auto 29.4 % (25-40); Mean Corpuscular HGB Conc 34.7 % (30-36); Mean Corpuscular Hemoglobin 28.5 PG (26-34); Mean Corpuscular Volume 81.9 fL (80-100); Monocytes Absolute Auto 600 /uL (0-900); Monocytes Percent Auto 6.7 % (3-14); Neutrophils Absolute Auto 5800 /uL (1500-7000); Neutrophils Percent Auto 62.2 % (50-75); Platelet Count 301 X10^3/uL (150-400); Red Blood Cell Count 4.74 X10^6/uL (4.0-5.2); Red Cell Distribution Width 13.5 % (11.6-14.8); White Blood Cell Count 9.4 X10^3/uL (4.5-11.0)
[2022-12-30 09:42] LABS: Alanine Aminotransferase 25 IU/L (<35); Albumin 4.3 g/dL (3.5-5.0); Albumin Globulin Ratio 1.2 (1.0-2.8); Alkaline Phosphatase 82 U/L (38-126); Aspartate Aminotransferase 21 IU/L (14-36); BUN Creatinine Ratio 16.5 (6-22); Bilirubin Total 0.5 mg/dL (0.2-1.3); Blood Urea Nitrogen 13 mg/dL (7-17); Calcium 9.6 mg/dL (8.4-10.2); Carbon Dioxide 29 mmol/L (22-32); Chloride 99 mmol/L (98-107); Creatine Kinase 106 U/L (30-135); Estimated Glomerular Filt Rate > 60 mL/min (>60); Globulin 3.5 g/dL (1.7-4.1); Glucose 106 mg/dL (70-100); HEMOLYSIS < 15 (0-50); Lipase 77 U/L (23-300); Potassium 4.1 mmol/L (3.4-5.1); Sodium 135 mmol/L (137-145); Total Protein 7.8 g/dL (6.3-8.2)
[2022-12-30 09:53] LABS: Troponin I < 0.012 ng/mL (0.01-0.034)
[2022-12-30 10:23] VITALS: BP 141/65; PULSE 95; RESP 20; O2SAT 96
== END 2022-12-30 10:20 | disposition home or self-care (01) ==
PROVIDERS: Emergency Provider Emergency Medicine; PCP Registered Nurse Diabetes Educator
DX: R07.89 Other chest pain (principal)
CPT/HCPCS: 36415; 71045; 80053; 82550; 83690; 84484; 85025; 93005; 99283; 99284

== ENCOUNTER → 2023-03-31 10:41 | Outpatient (CLI) | payer OTHER, SELFPAY ==
[2023-03-31 12:14] LABS: Blood Urea Nitrogen 13 mg/dL (7-17); Calcium 9.4 mg/dL (8.4-10.2); Carbon Dioxide 27 mmol/L (22-32); Chloride 100 mmol/L (98-107); Estimated Glomerular Filt Rate > 60 mL/min (>60); Glucose 100 mg/dL (70-100); HEMOLYSIS 47 (0-50); Potassium 3.8 mmol/L (3.4-5.1); Sodium 134 mmol/L (137-145)
== END ==
PROVIDERS: PCP Registered Nurse Diabetes Educator; Referring Provider Registered Nurse Diabetes Educator; Visit Provider Registered Nurse Diabetes Educator
DX: M79.89 Other specified soft tissue disorders (principal)
CPT/HCPCS: 36415; 80048

== ENCOUNTER → 2023-04-08 12:19 | Outpatient (CLI) | payer OTHER, SELFPAY ==
[2023-04-08 13:43] LABS: BUN Creatinine Ratio 16.9 (6-22); Blood Urea Nitrogen 11 mg/dL (7-17); Calcium 9.7 mg/dL (8.4-10.2); Carbon Dioxide 29 mmol/L (22-32); Chloride 99 mmol/L (98-107); Estimated Glomerular Filt Rate > 60 mL/min (>60); Glucose 93 mg/dL (70-100); HEMOLYSIS < 15 (0-50); Potassium 4.7 mmol/L (3.4-5.1); Sodium 135 mmol/L (137-145)
== END ==
PROVIDERS: PCP Registered Nurse Diabetes Educator; Referring Provider Registered Nurse Diabetes Educator; Visit Provider Registered Nurse Diabetes Educator
DX: M79.89 Other specified soft tissue disorders (principal)
CPT/HCPCS: 36415; 80048

== ENCOUNTER → 2023-04-29 13:54 | Outpatient (CLI) | payer OTHER, SELFPAY ==
[2023-04-29 14:56] LABS: BUN Creatinine Ratio 26.2 (6-22); Blood Urea Nitrogen 16 mg/dL (7-17); Calcium 9.3 mg/dL (8.4-10.2); Carbon Dioxide 26 mmol/L (22-32); Chloride 99 mmol/L (98-107); Estimated Glomerular Filt Rate > 60 mL/min (>60); Glucose 111 mg/dL (70-100); Potassium 3.8 mmol/L (3.4-5.1); Sodium 134 mmol/L (137-145)
[2023-04-29 14:57] LABS: HEMOLYSIS 71 (0-50)
== END ==
LOC: LAB 13:54
PROVIDERS: PCP Registered Nurse Diabetes Educator; Referring Provider Registered Nurse Diabetes Educator; Visit Provider Registered Nurse Diabetes Educator
DX: M79.89 Other specified soft tissue disorders (principal)
CPT/HCPCS: 36415; 80048

== ENCOUNTER → 2023-05-13 12:25 | Outpatient (CLI) | payer OTHER, SELFPAY ==
[2023-05-13 14:38] LABS: BUN Creatinine Ratio 22.9 (6-22); Blood Urea Nitrogen 16 mg/dL (7-17); Calcium 9.2 mg/dL (8.4-10.2); Carbon Dioxide 28 mmol/L (22-32); Chloride 99 mmol/L (98-107); Estimated Glomerular Filt Rate > 60 mL/min (>60); Glucose 97 mg/dL (70-100); HEMOLYSIS 23 (0-50); Potassium 3.8 mmol/L (3.4-5.1); Sodium 137 mmol/L (137-145)
== END ==
PROVIDERS: PCP Registered Nurse Diabetes Educator; Referring Provider Registered Nurse Diabetes Educator; Visit Provider Registered Nurse Diabetes Educator
DX: M79.89 Other specified soft tissue disorders (principal)
CPT/HCPCS: 36415; 80048

== ENCOUNTER → 2023-06-09 08:52 | Outpatient (CLI) | payer SELFPAY ==
[2023-06-10 09:52] LABS: Influenza A - CEPHEID Flu A NEGATIVE (NEGATIVE); Influenza B - CEPHEID Flu B NEGATIVE (NEGATIVE); Respiratory Syncytial Virus Negative (Negative)
[2023-06-10 09:53] LABS: COVID-19 CEPHEID 4-PLEX PCR Negative (Negative)
== END ==
PROVIDERS: PCP Registered Nurse Diabetes Educator; Referring Provider Physician Assistant; Visit Provider Physician Assistant
DX: R05.1 Acute cough (principal)
CPT/HCPCS: 0241U